=== PATIENT | male | born 1940 | race Caucasian/White ===

== ENCOUNTER 2017-04-21 19:44 | Emergency (ER) | payer MEDICARE, OTHER ==
[2017-04-21] MEDS ORDERED: Cephalexin CAP* 500 MG PO ONE (21:36)
[2017-04-21] MEDS ORDERED: Sulfamethox/Trimethoprim DS 800/160* TAB PO ONE (21:36)
[2017-04-21 22:55] VITALS: BP 138/64
--- NOTE | 2017-04-22 15:42 | ED ---
Cristóbal Garcia Auryana, scribed for Сергей Mooney MD on 04/21/17 at 2133 . Skin Complaint - HPI Summary HPI Summary: Patient is a 76-year-old male presenting to the ED with his and grandson with a CC of wounds. Patient reports that he hit his left causey onto a barbecue 1 week ago. Today, patient noticed drainage from the wound. Wound is painful to the touch, but is not painful at rest or with ambulation. Patient also reports healing wounds to the RLE and upper extremities - he states he easily develops wounds. Pt denies fever, chills, diaphoresis, nausea, and groin pain. Pt denies taking Abx or steroids. Hx DM. He states he has an appointment with PCP Dr. Spear on 04/23/2017. - History of Current Complaint Chief Complaint: EDExtremityLower Time Seen by Provider: 04/21/17 20:17 Stated Complaint: DIABETIC PROBLEM/INFECTION ON BOTH LEGS Hx Obtained From: Patient, Family/Human Resources Department Supervisor Onset/Duration: Started Weeks Ago - 1 week, Traumatic, Still Present Timing: Constant Onset Severity: Mild Current Severity: Moderate Pain Intensity: 0 Pain Scale Used: 0-10 Numeric Skin Location: Leg - LLE Aggravating Symptom(s): Touch Alleviating Symptom(s): Nothing Associated Signs & Symptoms: Drainage - Allergy/Home Medications Allergies/Adverse Reactions: Allergies Allergy/AdvReac Type Severity Reaction Status Date / Time No Known Allergies Allergy Verified 04/21/17 20:05 PMH/Surg Hx/FS Hx/Imm Hx Endocrine/Hematology History: Reports: Hx Diabetes Infectious Disease History: No Infectious Disease History: Denies: Traveled Outside the [place] in Last 30 Days - Family History Known Family History: Positive: Diabetes - Social History Alcohol Use: None Substance Use Type: Reports: None Hx Tobacco Use: No Smoking Status (MU): Unknown if Ever Smoked Review of Systems Negative: Fever, Chills Negative: Erythema Negative: Sore Throat Negative: Chest Pain Negative: Shortness Of Breath, Cough Negative: Abdominal Pain, Vomiting, Nausea Negative: dysuria, hematuria Negative: Myalgia, Edema Skin: Other - draining wound, multiple other scabbing wounds Negative: Rash Neurological: Other - Denies dizziness All Other Systems Reviewed And Are Negative: Yes Physical Exam - Summary Physical Exam Summary: Constitutional: Well-developed, Well-nourished, Alert. (-) Distressed Skin: Warm. Purulent material leaking from this puncture wound on left lower causey. No fluctuance or induration overlying. Scabbed-over skin trauma on extremities. HENT: Normocephalic; Atraumatic Eyes: Conjunctiva normal Neck: Musculoskeletal ROM normal neck. (-) JVD, (-) Stridor, (-) Tracheal deviation Cardio: Rhythm regular, rate normal, Heart sounds normal; Intact distal pulses; The pedal pulses are 2+ and symmetric. Radial pulses are 2+ and symmetric. (-) Murmur Pulmonary/Chest wall: Effort normal. (-) Respiratory distress, (-) Wheezes, (-) Rales Abd: Soft, (-) Tenderness, (-) Distension, (-) Guarding, (-) Rebound Musculoskeletal: (-) Edema Lymph: (-) Cervical adenopathy Neuro: Alert, Oriented x3 Psych: Mood and affect normal Triage Information Reviewed: Yes Vital Signs On Initial Exam: Initial Vitals Temp Pulse Resp BP Pulse Ox 97.9 F 68 16 116/57 100 04/21/17 20:00 04/21/17 20:00 04/21/17 20:00 04/21/17 20:00 04/21/17 20:00 Vital Signs Reviewed: Yes - Mary Coma Scale Coma Scale Total: 15 Diagnostics - Vital Signs Vital Signs Temp Pulse Resp BP Pulse Ox 04/21/17 20:39 98.2 F 64 18 127/56 99 04/21/17 20:00 97.9 F 68 16 116/57 100 - Laboratory Lab Statement: Any lab studies that have been ordered have been reviewed, and results considered in the medical decision making process. Course/Dx - Course Assessment/Plan: A 76 y/o M presents to the ED with a draining wound. Hx DM. Pt given Keflex and Bactrim in the ED, and is given a Rx for the same. Wound culture obtained. Patient is recommended to follow up with his PCP on Sunday, and is discharged home with a diagnosis of puncture wound and infected diabetic ulcer. - Diagnoses Provider Diagnoses: Puncture wound, INFECTED DIABETIC ULCER Discharge - Discharge Plan Condition: Stable Disposition: HOME Prescriptions: Cephalexin CAP* [Keflex CAP*] 500 mg PO QID #40 cap Sulfamethox/Trimethoprim DS* [Bactrim DS 800/160 TAB*] 1 tab PO BID #20 tab Patient Education Materials: Puncture Wound (ED), Wound Infection (ED) Referrals: Paulino Spear MD [Primary Care Provider] - 2 Days (Please keep your follow up appointment with Dr. Spear.) Additional Instructions: RETURN TO THE EMERGENCY DEPARTMENT FOR CHANGING OR WORSENING SYMPTOMS The documentation as recorded by the Cristóbal crisostomo Auryana accurately reflects the service I personally performed and the decisions made by me, Сергей Mooney MD.
--- NOTE | 2017-04-24 11:15 | PN ---
Progress Note - Progress Note Note: diagnosed with cellulitis. treated at discharge with keflex and bcatrim. culture results were MRSA negative however staph aureus positive. No further action needed at this time.
== END 2017-04-21 22:53 | disposition home or self-care (01) ==
LOC: ED 19:44
DX: S81.832A Puncture wound without foreign body, left lower leg, initial encounter (principal); E11.622 Type 2 diabetes mellitus with other skin ulcer; W22.8XXA Striking against or struck by other objects, initial encounter; Y93.9 Activity, unspecified; Y92.9 Unspecified place or not applicable; Y99.9 Unspecified external cause status
CPT/HCPCS: 87070; 87077; 87186; 87205; 87640; 87641; 99282; A9270-GY

== ENCOUNTER 2017-04-25 11:29 | Emergency (ER) | payer MEDICARE, OTHER ==
[2017-04-25] MEDS ORDERED: NS 0.9% 1000 ML* 2,000 ML IV ONE (13:46)
[2017-04-25 14:49] LABS: Troponin I 0.01 ng/mL (<0.04)
[2017-04-25 14:51] LABS: B Type Natriuretic Peptide 241 pg/mL
[2017-04-25 14:55] LABS: Ammonia 30 mol/L (16-53)
[2017-04-25 14:57] LABS: ALT 18 U/L (7-52); AST 43 U/L (13-39); Albumin 2.3 g/dL (3.2-5.2); Alkaline Phosphatase 101 U/L (34-104); Anion Gap 8 mmol/L (2-11); BUN/Creatinine Ratio 9.5 (8-20); Blood Urea Nitrogen 6 mg/dL (6-24); C Reactive Protein 15.62 mg/L (< 5.00); CO2 Carbon Dioxide 26 mmol/L (22-32); Chloride 100 mmol/L (101-111); Creatine Kinase 18 U/L (10-223); EGFR African American 158.8 (>60); EGFR Non-African American 123.5 (>60); Globulin 2.6 g/dL (2-4); Glucose 139 mg/dL (70-100); Lipase < 10 U/L (11.0-82.0); Magnesium 1.7 mg/dL (1.9-2.7); Potassium 3.9 mmol/L (3.5-5.0); Sodium 134 mmol/L (133-145); Total Protein 4.9 g/dL (6.4-8.9)
[2017-04-25 15:04] LABS: Hematocrit 39 % (42-52); Mean Corpuscular HGB Conc 33 g/dl (31-36); Mean Corpuscular Hemoglobin 39 pg (27-31); Mean Platelet Volume 9 um3 (7.4-10.4); Red Blood Count 3.34 10^6/ul (4.0-5.4); Red Cell Distribution Width 13 % (10.5-15); White Blood Count 5.3 10^3/ul (3.5-10.8)
[2017-04-25 15:05] LABS: TSH (Thyroid Stimulating Horm) 3.38 mcIU/mL (0.34-5.60)
[2017-04-25 15:06] LABS: Add Diff/Slide Review? Slide Review Added; Mean Corpuscular Volume 117 fL (80-94)
[2017-04-25 15:11] LABS: Macrocytosis 2+
[2017-04-25] MEDS ORDERED: Iodixanol* (CONTRAST) 320 MG/ML 100 ML SDV IV ONE (15:17)
[2017-04-25] MEDS ORDERED: Magnesium Sulfate 2 GM IV* 2 GM/50 ML BAG IVPB ONE (15:33)
--- NOTE | 2017-04-25 16:02 | RAD ---
INDICATION: Difficulty swallowing and confusion. COMPARISON: Comparison is made with a prior CT of the brain from June 08, 2008. TECHNIQUE: Contiguous axial sections of the brain were obtained from the skull base to the vertex without contrast. FINDINGS: The ventricles, cisterns and sulci are enlarged consistent with diffuse atrophy. No significant focal abnormality or mass effect is seen. There is no evidence for hemorrhage. No significant focal osseous abnormality is seen. There is a nodular density in the inferior portion of the left maxillary sinus consistent with a mucous retention cyst or polyp. The visualized portion of the paranasal sinuses and mastoid air cells otherwise appear clear. IMPRESSION: 1. NO EVIDENCE FOR GROSS ACUTE INFARCT, MASS EFFECT OR HEMORRHAGE. 2. DIFFUSE ATROPHY.
--- NOTE | 2017-04-25 16:11 | RAD ---
Indication: Difficulty swallowing, positive d-dimer. Contrast:Administered 50.3 ml of VISIPAQUE 320 mg/ml CT of the neck was performed after IV contrast demonstration. The paranasal sinuses demonstrates mucous retention cyst in the left maxillary sinus. No prevertebral soft tissue swelling is noted. No prevertebral masses are noted. Submandibular gland is otherwise unremarkable. Airways are otherwise patent. There is calcification of the carotid bulb bilaterally. The lung apices are grossly unremarkable with small bilateral pleural effusions. Degenerative changes of the cervical spine was obtained. IMPRESSION: No prevertebral soft tissue masses or abscess collection is noted. Mucus retention cyst left maxillary sinus.
--- NOTE | 2017-04-25 16:24 | RAD ---
INDICATION: Difficulty swallowing. Shortness of breath. Positive d-dimer. Possible PE. Weight loss. COMPARISON: July 31, 2007 RIGHT upper quadrant ultrasound. TECHNIQUE: Multidetector CT images were obtained from the lung apices to the ischial tuberosities with 100 mL Visipaque 320 IV contrast. Oral contrast administered. CT pulmonary angiogram protocol. Multiplanar reformation including maximum intensity projection images of the thorax. CHEST REPORT: Small bilateral dependent pleural effusions with associated proportional dependent compressive atelectasis. No alveolar consolidation concerning for pneumonia or focal pulmonary lesion evident. Mild prominence of the lower lung zone interstitial markings with thickened peripheral interlobular septa. Negative for pneumothorax. No CT abnormality of the nondistended thoracic esophagus. Partially calcified mediastinal lymph nodes with dominant 1.0 cm top normal subcarinal lymph node. Subcentimeter short axis hilar lymph nodes. Negative for thoracic lymphadenopathy. Negative for cardiomegaly or pericardial effusion. Normal diameter thoracic aorta with mild atherosclerotic plaque. Negative for thoracic aorta dissection. No filling defects are identified from the main to the subsegmental pulmonary arteries to indicate presence of a pulmonary embolism. Multilevel thoracic degenerative spondylosis. Negative for suspicious thoracic osseous lesions. CHEST IMPRESSION: 1. No evidence for pulmonary embolism. 2. Small bilateral pleural effusions with proportional atelectasis likely secondary to cardiogenic interstitial pulmonary edema. ABDOMEN PELVIS REPORT: 15.9 cm cephalocaudal liver is decreased in density consistent with hepatosteatosis with subcapsular and gallbladder fossa sparing. No suspicious focal hepatic lesions. No CT abnormality of the gallbladder. Advanced pancreatic atrophy and calcification at the atrophic pancreatic head consistent with sequela of previous pancreatitis without suspicious acute finding of the pancreas. Negative for biliary dilatation. Unremarkable spleen. Negative for CT abnormality of the upper GI, small bowel, or appendix visualized anterior to the cecum and ascending colon. Severe colonic diverticulosis. At the level of the mid descending colon there is mild perienteric inflammatory change most consistent with acute diverticulitis. Trace perienteric free fluid. Negative for perienteric abscess. Negative for significant hernias. Normal adrenal glands. Unremarkable kidneys with symmetric nephrograms and pyelograms. Unremarkable ureters and distended urinary bladder. Coarse calcifications at the prostate. Negative for lymphadenopathy. Mild atherosclerotic plaque of normal diameter abdominal aorta and iliac arteries. Partial physiologic distention of the IVC. Polyarticular degenerative arthropathy. Negative for suspicious focal osseous lesions. ABDOMEN PELVIS IMPRESSION: 1. Hepatosteatosis. 2. At the level of the mid descending colon there is mild perienteric inflammatory change most consistent with acute diverticulitis. Trace perienteric free fluid. Negative for perienteric abscess. Follow-up after therapy warranted to assess for resolution and exclude an underlying colonic neoplasm.
--- NOTE | 2017-04-25 18:33 | ED ---
Aissatou Garcia Alfonso, scribed for Maurice Erwin MD on 04/25/17 at 1341 . Complex/Multi-Sys Presentation - HPI Summary HPI Summary: This patient is a 76 y.o. male presenting to [facility] c/o generalized weakness for the last few days. He states "not having any energy at all." He reports loss of appetite, not eating (yesterday and today), difficulty swallowing, gagging, and N/V/D. Symptoms aggravated by eating and alleviated by nothing. The patient also reports dizziness and confusion. He denies sore throat, melena, fever, and pain including chest, neck, and abdominal pain. He presented to the ED 4 days ago for a non-MRSA staff infection in his left leg, which has improved with abx. Report losing 40 lb over the last two years secondary to having his teeth removed. He is taking cholesterol medication and metformin. - History Of Current Complaint Chief Complaint: EDWeakness Time Seen by Provider: 04/25/17 13:25 Hx Obtained From: Patient Onset/Duration: Sudden Onset, Lasting Days - A few days, Still Present Timing: Constant Severity Currently: Moderate Severity Initially: Moderate Aggravating Factor(s): Eating Alleviating Factor(s): Nothing Associated Signs And Symptoms: Positive: Confusion, Dizziness, Weakness - Generalized weakness of the last few days, Nausea, Vomiting, Diarrhea, Decreased Oral Intake - Loss of appetite, and did not eat yesterday and today, Other - Positive difficulty sallowing, gagging; Negative neck pain, sore throat. Negative: Chest Pain, Abdominal Pain, Melena, Fever - Allergies/Home Medications Allergies/Adverse Reactions: Allergies Allergy/AdvReac Type Severity Reaction Status Date / Time No Known Allergies Allergy Verified 04/21/17 20:05 Home Medications: Home Medications Gemfibrozil TAB* [Lopid TAB*] 600 mg PO DAILY 04/25/17 [History Confirmed 04/25] Sertraline* [Zoloft*] 25 mg PO DAILY 04/25/17 [History Confirmed 04/25/17] PMH/Surg Hx/FS Hx/Imm Hx Endocrine/Hematology History: Reports: Hx Diabetes Infectious Disease History: Denies: Traveled Outside the [place] in Last 30 Days - Family History Known Family History: Positive: Diabetes - Social History Alcohol Use: None Substance Use Type: Reports: None Hx Tobacco Use: No Smoking Status (MU): Unknown if Ever Smoked Review of Systems Negative: Fever Positive: Other - Positive difficulty swallowing, gagging. Negative: Sore Throat Negative: Chest Pain Positive: Vomiting, Diarrhea, Nausea, Other - negative melena. Negative: Abdominal Pain Positive: Arthralgia - Negative neck pain Neurological: Other - Positive loss of appetite, dizziness, and confusion Positive: Weakness - generalized weakness for the last few days Psychological: Normal All Other Systems Reviewed And Are Negative: Yes Physical Exam - Summary Physical Exam Summary: Gen: well-appearing, no pain distress, NAD. Skin: warm, color, dry, no edema. Head: normal Eyes: EOMI, STEFANO ENT: normal Neck: supple, nontender Resp: CTA, breath sounds present, lungs clear Cardio: RRR, no tachycardia Abd: soft, nontender Bowel: present Musc: normal, strength/ROM intact Neuro: normal, sensory/motor intact, A&O x3 Psych: affect/mood appropriate Triage Information Reviewed: Yes Vital Signs On Initial Exam: Initial Vitals Temp Pulse Resp BP Pulse Ox 98 F 88 17 109/68 96 04/25/17 11:32 04/25/17 11:32 04/25/17 11:32 04/25/17 11:32 04/25/17 11:32 Vital Signs Reviewed: Yes Diagnostics - Vital Signs Vital Signs Temp Pulse Resp BP Pulse Ox 04/25/17 11:32 98 F 88 17 109/68 96 - Laboratory Lab Results: Lab Results 04/25/17 04/25/17 04/25/17 Range/Units 14:10 14:10 14:10 WBC 5.3 (3.5-10.8) 10^3/ul RBC 3.34 L (4.0-5.4) 10^6/ul Hgb 13.0 L (14.0-18.0) g/dl Hct 39 L (42-52) % MCV 117 H (80-94) fL MCH 39 H (27-31) pg MCHC 33 (31-36) g/dl RDW 13 (10.5-15) % Plt Count 114 L (150-450) 10^3/ul MPV 9 (7.4-10.4) um3 Neut % (Auto) 71.9 (38-83) % Lymph % (Auto) 12.0 L (25-47) % Anderson % (Auto) 12.4 H (1-9) % Eos % (Auto) 3.2 (0-6) % Baso % (Auto) 0.5 (0-2) % Absolute Neuts (auto) 3.8 (1.5-7.7) 10^3/ul Absolute Lymphs (auto) 0.6 L (1.0-4.8) 10^3/ul Absolute Monos (auto) 0.7 (0-0.8) 10^3/ul Absolute Eos (auto) 0.2 (0-0.6) 10^3/ul Absolute Basos (auto) 0 (0-0.2) 10^3/ul Absolute Nucleated RBC 0.01 10^3/ul Nucleated RBC % 0.1 Normal RBC Morphology Not Reportable Macrocytosis 2+ INR (Anticoag Therapy) 1.15 H (0.89-1.11) APTT 32.2 (26.0-36.3) seconds D-Dimer, Quantitative 320 H (Less Than 230) ng/mL Sodium 134 (133-145) mmol/L Potassium 3.9 (3.5-5.0) mmol/L Chloride 100 L (101-111) mmol/L Carbon Dioxide 26 (22-32) mmol/L Anion Gap 8 (2-11) mmol/L BUN 6 (6-24) mg/dL Creatinine 0.63 L (0.67-1.17) mg/dL Est GFR ( Amer) 158.8 (>60) Est GFR (Non-Af Amer) 123.5 (>60) BUN/Creatinine Ratio 9.5 (8-20) Glucose 139 H (70-100) mg/dL Lactic Acid (0.5-2.0) mmol/L Calcium 8.0 L (8.6-10.3) mg/dL Magnesium 1.7 L (1.9-2.7) mg/dL Total Bilirubin 1.10 H (0.2-1.0) mg/dL AST 43 H (13-39) U/L ALT 18 (7-52) U/L Alkaline Phosphatase 101 (34-104) U/L Ammonia (16-53) mol/L Total Creatine Kinase 18 (10-223) U/L CK-MB (CK-2) 1.3 (0.6-6.3) ng/mL Troponin I 0.01 (<0.04) ng/mL C-Reactive Protein 15.62 H (< 5.00) mg/L B-Natriuretic Peptide ( - 100) pg/mL Total Protein 4.9 L (6.4-8.9) g/dL Albumin 2.3 L (3.2-5.2) g/dL Globulin 2.6 (2-4) g/dL Albumin/Globulin Ratio 0.9 L (1-3) Lipase < 10 L (11.0-82.0) U/L TSH 3.38 (0.34-5.60) mcIU/mL 04/25/17 04/25/17 Range/Units 14:10 14:10 WBC (3.5-10.8) 10^3/ul RBC (4.0-5.4) 10^6/ul Hgb (14.0-18.0) g/dl Hct (42-52) % MCV (80-94) fL MCH (27-31) pg MCHC (31-36) g/dl RDW (10.5-15) % Plt Count (150-450) 10^3/ul MPV (7.4-10.4) um3 Neut % (Auto) (38-83) % Lymph % (Auto) (25-47) % Anderson % (Auto) (1-9) % Eos % (Auto) (0-6) % Baso % (Auto) (0-2) % Absolute Neuts (auto) (1.5-7.7) 10^3/ul Absolute Lymphs (auto) (1.0-4.8) 10^3/ul Absolute Monos (auto) (0-0.8) 10^3/ul Absolute Eos (auto) (0-0.6) 10^3/ul Absolute Basos (auto) (0-0.2) 10^3/ul Absolute Nucleated RBC 10^3/ul Nucleated RBC % Normal RBC Morphology Macrocytosis INR (Anticoag Therapy) (0.89-1.11) APTT (26.0-36.3) seconds D-Dimer, Quantitative (Less Than 230) ng/mL Sodium (133-145) mmol/L Potassium (3.5-5.0) mmol/L Chloride (101-111) mmol/L Carbon Dioxide (22-32) mmol/L Anion Gap (2-11) mmol/L BUN (6-24) mg/dL Creatinine (0.67-1.17) mg/dL Est GFR ( Amer) (>60) Est GFR (Non-Af Amer) (>60) BUN/Creatinine Ratio (8-20) Glucose (70-100) mg/dL Lactic Acid 1.5 (0.5-2.0) mmol/L Calcium (8.6-10.3) mg/dL Magnesium (1.9-2.7) mg/dL Total Bilirubin (0.2-1.0) mg/dL AST (13-39) U/L ALT (7-52) U/L Alkaline Phosphatase (34-104) U/L Ammonia 30 (16-53) mol/L Total Creatine Kinase (10-223) U/L CK-MB (CK-2) (0.6-6.3) ng/mL Troponin I (<0.04) ng/mL C-Reactive Protein (< 5.00) mg/L B-Natriuretic Peptide 241 H ( - 100) pg/mL Total Protein (6.4-8.9) g/dL Albumin (3.2-5.2) g/dL Globulin (2-4) g/dL Albumin/Globulin Ratio (1-3) Lipase (11.0-82.0) U/L TSH (0.34-5.60) mcIU/mL Result Diagrams: 04/25/17 14:10 04/25/17 14:10 Lab Statement: Any lab studies that have been ordered have been reviewed, and results considered in the medical decision making process. - CT CTA Chest/Abd/Pelvis CT Interpretation: Positive (See Comments) - 1. No evidence for pulmonary embolism. 2. Small bilateral pleural effusions with proportional atelectasis likely secondary to cardiogenic interstitial pulmonary edema. CT Interpretation Completed By: Radiologist Neck CT CT Interpretation: Positive (See Comments) - No prevertebral soft tissue masses or abscess collection is noted. Mucus retention cyst left maxillary sinus. CT Interpretation Completed By: Radiologist Brain CT CT Interpretation: Positive (See Comments) - 1. NO EVIDENCE FOR GROSS ACUTE INFARCT, MASS EFFECT OR HEMORRHAGE. 2. DIFFUSE ATROPHY. CT Interpretation Completed By: Radiologist - EKG 1136 EKG Rhythm: Sinus Rhythm - NSR 73 BPM EKG Interpretation: PVC and low voltages in the extremity leads Re-Evaluation - Re-Evaluation Second Eval Re-Evaluation Time: 13:56 Comment: Discussed plan with patient and daughter. Complex Multi-Symp Course/Dx Course Of Treatment: NO CRITICAL CARE TIME. DISCUSSED RESULTS WITH PATIENT/ DAUGHTER. PATIENT TOLERATED PO CONTRAST IN ED. RX FLAGYL FOR DIVERTICULITIS. NO DIURETICS AT THIS TIME FOR THE PULMONARY EDEMA; PATIENT WILL F/U WITH PMD TO DETERMINE NEED FOR DIURETICS. DICUSSED NEED FOR GI F/U FOR PROBABLE EGD AND COLONOSCOPY. DISCHARGE HOME STABLE. - Diagnoses Provider Diagnoses: Weakness, Diverticulitis, Pulmonary edema - Physician Notifications Discussed Care Of Patient With: Ha Hicks Time Discussed With Above Provider: 13:41 Instructed by Provider To: Other - Discussed the patient and which imaging would be appropriate with Dr. Hicks (Hospitalist). Discharge - Discharge Plan Condition: Stable Disposition: HOME Prescriptions: Metronidazole [Flagyl 500 MG TAB] 500 mg PO TID #21 tab Patient Education Materials: Weakness (ED), Diverticulitis (ED), Pulmonary Edema (ED) Referrals: Paulino Spear MD [Primary Care Provider] - [facility] [Provider Group] Additional Instructions: FOLLOW UP WITH YOUR DOCTOR. CALL TOMORROW FOR FOLLOW UP. YOU ALSO NEED FOLLOW UP WITH GASTROENTEROLOGY FOR THE DIFFICULTY SWALLOWING AND COLON INFLAMMATION. RETURN TO THE EMERGENCY DEPARTMENT FOR ANY WORSENING OF YOUR CONDITION; PAIN, SHORTNESS OF BREATH, YOU FEEL ILL OR QUESTIONS OR CONCERNS. The documentation as recorded by the Aissatou crisostomo Alfonso accurately reflects the service I personally performed and the decisions made by me, Maurice Erwin MD.
[2017-04-25 18:54] VITALS: BP 142/53
== END 2017-04-25 18:54 | disposition home or self-care (01) ==
LOC: ED 11:29
DX: R53.1 Weakness (principal); J81.1 Chronic pulmonary edema; K57.92 Diverticulitis of intestine, part unspecified, without perforation or abscess without bleeding; R41.0 Disorientation, unspecified; R11.2 Nausea with vomiting, unspecified; R19.7 Diarrhea, unspecified
CPT/HCPCS: 36415; 70450; 70491; 71275; 74177; 80053; 82140; 82550; 82553; 83605; 83690; 83735; 83880; 84443; 84484; 85025; 85379; 85610; 85730; 86140; 93005; 99283; Q9967

== ENCOUNTER 2017-07-12 09:18 | Inpatient (IN) | payer MEDICARE, OTHER ==
[2017-07-12] MEDS ORDERED: Aspirin Low Dose CHEW TAB* 81 MG PO ONE (09:40)
[2017-07-12 10:00] LABS: Hematocrit 33 % (42-52); Hemoglobin 11.1 g/dl (14.0-18.0); Mean Corpuscular HGB Conc 34 g/dl (31-36); Mean Corpuscular Hemoglobin 37 pg (27-31); Mean Platelet Volume 7 um3 (7.4-10.4); Red Blood Count 2.99 10^6/ul (4.0-5.4); Red Cell Distribution Width 14 % (10.5-15); White Blood Count 6.3 10^3/ul (3.5-10.8)
[2017-07-12 10:04] LABS: Comments Flag Yes; Mean Corpuscular Volume 109 fL (80-94)
[2017-07-12 10:14] LABS: ALT 26 U/L (7-52); AST 58 U/L (13-39); Albumin 1.7 g/dL (3.2-5.2); Alkaline Phosphatase 159 U/L (34-104); Anion Gap 4 mmol/L (2-11); BUN/Creatinine Ratio 17.3 (8-20); Blood Urea Nitrogen 9 mg/dL (6-24); CO2 Carbon Dioxide 27 mmol/L (22-32); Calcium 8.2 mg/dL (8.6-10.3); Chloride 105 mmol/L (101-111); EGFR African American 197.7 (>60); EGFR Non-African American 153.7 (>60); Globulin 3.3 g/dL (2-4); Glucose 141 mg/dL (70-100); Potassium 3.4 mmol/L (3.5-5.0); Sodium 136 mmol/L (133-145)
[2017-07-12 10:15] LABS: Troponin I 0.01 ng/mL (<0.04)
--- NOTE | 2017-07-12 10:17 | RAD ---
HISTORY: Shortness of breath COMPARISONS: June 28, 2015 VIEWS:1: Single frontal portable view of the chest at 10:05 AM FINDINGS: LINES AND TUBES: None. CARDIOMEDIASTINAL SILHOUETTE: The cardiomediastinal silhouette is normal for portable technique. PLEURA: There is a moderate right pleural effusion. LUNG PARENCHYMA: There is patchy alveolar opacification of the right lung base ABDOMEN: The upper abdomen is clear. There is no subphrenic gas. BONES AND SOFT TISSUES: No bone or soft tissue abnormalities are noted. IMPRESSION: MODERATE RIGHT PLEURAL EFFUSION WITH RIGHT BASILAR ATELECTASIS VERSUS CONSOLIDATION
[2017-07-12] MEDS ORDERED: Furosemide IV* 10 MG/ML 10 ML VIAL (100 MG) IV ONE (10:58)
[2017-07-12] MEDS ORDERED: Potassium Chlor TAB* 20 MEQ TAB.ER PO ONE (12:27)
[2017-07-12 12:46] LABS: Prealbumin < 3 mg/dL (18-38)
[2017-07-12 12:48] LABS: Magnesium 1.6 mg/dL (1.9-2.7)
[2017-07-12] MEDS ORDERED: Magnesium Sulf 4 GM/100 ML IV* 4,000 MG/100 ML BAG IVPB ONE (13:05)
[2017-07-12 13:15] LABS: Troponin I 0.01 ng/mL (<0.04)
[2017-07-12 13:35] LABS: TSH (Thyroid Stimulating Horm) 6.75 mcIU/mL (0.34-5.60)
[2017-07-12 14:00] LABS: C Reactive Protein 22.33 mg/L (< 5.00)
[2017-07-12 14:23] LABS: Free T4 1.44 ng/dL (0.61-1.12)
[2017-07-12] MEDS: Enoxaparin(*) 40 MG/0.4 ML SYR SUBCUT SCH (15:11)
[2017-07-12] MEDS: Spironolactone TAB* 25 MG PO SCH (15:12)
[2017-07-12] MEDS: PANCRELIPASE 3000 UNIT PO SCH ×2 (15:13→18:00)
--- NOTE | 2017-07-12 15:22 | RAD ---
HISTORY: Ascites, evaluate liver COMPARISONS: April 25, 2017 TECHNIQUE: Multiple transverse and longitudinal ultrasound images were obtained of the right upper quadrant of the abdomen using grayscale, color Doppler, and spectral Doppler imaging. FINDINGS: LIVER: The liver is diffusely echogenic with a micronodular contour. There are no focal hepatic parenchymal masses. There is normal monophasic hepatopedal flow of the portal vein on Doppler imaging. BILIARY TREE: There is no intrahepatic or extrahepatic biliary dilatation. The common duct measures 0.3 cm. GALLBLADDER: There is mild bilateral thickening. There is no sonographic Yoo sign. PANCREAS: The pancreas is obscured by overlying bowel gas. RIGHT KIDNEY: The right kidney is normal in shape, size, contour, and echogenicity. There is no hydronephrosis or nephrolithiasis. The right kidney measures 10.2 x 4.6 x 5.7 cm. AORTA AND IVC: The aorta and IVC are unremarkable. FLUID: There is a moderate to large amount ascites. There is a right pleural effusion. OTHER FINDINGS: None. IMPRESSION: 1. ASCITES. 2. RIGHT PLEURAL EFFUSION. 3. CIRRHOTIC LIVER. 4. MILD GALLBLADDER WALL THICKENING
[2017-07-12 15:31] LABS: Total T3 0.58 ng/mL (0.87-1.78)
[2017-07-12 16:11] LABS: Urine Bilirubin Negative (Negative); Urine Glucose Negative (Negative); Urine Nitrite Negative (Negative)
--- NOTE | 2017-07-12 17:16 | HP ---
CC: Dr. Paulino Spear, primary care provider * MEDICINE HISTORY AND PHYSICAL: DATE OF ADMISSION: 07/12/17. PROVIDER: Jyotsna Abdi NP ATTENDING PHYSICIAN: Dr. Mookie Magdaleno * (as dictated by Jyotsna Abdi NP) PRIMARY CARE PROVIDER: Dr. Paulino Spear MD CHIEF COMPLAINT: Referred by PCP for further evaluation of ascites and worsening edema. HISTORY OF PRESENT ILLNESS: Mr. Ledbetter is a 77-year-old gentleman who presents to the ER today with concern for increased dyspnea and generalized edema that has been ongoing for several weeks now. Mr. Ledbetter has a history that is significant for alcohol abuse, which includes a many year history of drinking a 6-pack of beer daily. His last drink was at the end of March. He has been followed by his PCP, Cardiology, and Gastroenterology as an outpatient. Per the patient's , Sanjeev, who helped to provide most of the history, the patient started having more significant swelling approximately 3 weeks ago. She does endorse an approximate 40 pound weight loss over the past 2 years. Prior to the increase in swelling, she thinks his dry weight was about 130 pounds following his weight loss. This was approximately 3 to 4 weeks ago. Since then, he has gained approximately 30 pounds. She notes in the last week, he was 153 pounds and today he is 160 pounds. She reports decreased p.o. intake. She does provide the patient with 3 to 4 protein drinks a day, in which she uses a protein powder with 27 g of protein that she mixes into a shake for the patient. She states that he eats very poorly, so she relies mostly on these shakes and then on whatever other food that he can get in by mouth. Patient reports that he has difficulty managing food, but this is secondary to dentures that he has had difficulty getting used to. When he is not utilizing the dentures, he is able to swallow without difficulty. He denies any recent fevers, cold or flu type symptoms or concern for acute illness. He does endorse loss of appetite and generalized weakness. His family does state that he sleeps a lot more. However, the family does not endorse any confusion or impulsive behaviors. Patient states that he is "just tired all the time" and that he has no strength. He does sleep propped up on pillows in his bed, or he sleeps in a recliner. He does endorse leg and abdominal discomfort, which is secondary to the swelling. Prior to the swelling, he did not notice this pain. He reports nausea but no vomiting or diarrhea. Patient does state he has history of pancreatic insufficiency but that his stools have improved to the point now that they are no longer floating and greasy, but they do sink. However, it does still look abnormal to them. Again, in regards to the patient' s ambulation, he does need more assistance with moving. He does have a walker, but now he requires maximum assistance when out of bed and is very weak. Other symptoms include an occasional cough, more so with exertion and dyspnea with exertion. Patient does endorse dark tea colored urine, which has been ongoing for a few weeks now. The patient was seen in consultation for a new heart murmur by Dr. Julien earlier this month. Per the family, they were told that the steam tender did not feel that his symptoms were primarily to a heart condition but rather mostly related to perhaps the liver. They stated that there were no significant valvular abnormalities seen in the echocardiogram. They saw Dr. Solitario sometime in May and stated that he agreed with continuing the patient' s Creon, but there were no other recommendations made at that time. Patient also around that time had a CT of the abdomen, which did show atrophic pancreas. Here in the ER, the patient has received aspirin and approximately 60 mg of IV Lasix. He has started to have some output. His labs are significant for macrocytic anemia, which appears to be consistent with previous labs. His H and H was mildly decreased from previous. He does have some hypokalemia as well as a mildly elevated total bilirubin of 1.5, AST of 58, and alk phos of 159. His BNP is 102, his albumin is 1.7. Patient's chest x-ray is notable for moderate right pleural effusion with right basilar atelectasis versus consolidation. PAST MEDICAL HISTORY: 1. Pancreatic insufficiency. 2. Ascites and anasarca. 3. History of alcohol abuse. 4. Depression. 5. History of hypertension, no longer on any medications. 6. GERD with history of severe hepatitis. 7. Hyperlipidemia, not on statin therapy. 8. Actinic keratosis. 9. History of basal cell skin cancer. 10. Diabetes mellitus, type 2. Patient is not on any chronic medications. 11. Osteoarthritis. 12. Gout. 13. Heart murmur. 14. BPH. 15. Mildly hard of hearing. HOME MEDICATIONS: 1. Sertraline 50 mg daily. 2. Furosemide 20 mg daily. 3. Creon 1 to 2 tabs t.i.d. with meals. 4. Ranitidine 150 mg b.i.d. 5. Protein drinks 3 to 4 per day. 6. Allopurinol p.r.n. ALLERGIES: Include CLAM. FAMILY HISTORY: Patient reports a father with history of heart disease who is now and mother who of thoracic aneurysm. SOCIAL HISTORY: Patient is a former cigar smoker, he quit approximately 25 years ago. He has a longstanding history of drinking approximately 6 pack of beer daily and occasional hard liquor. His last drink was at the end of March 2017. He does not have any history of illicit drug use. 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 He is . His Sanjeev is his surrogate decision maker. REVIEW OF SYSTEMS: As per above, all those not mentioned HPI are negative. PHYSICAL EXAMINATION GENERAL: Mr. Ledbetter is a 77-year-old male patient who appears older than stated age. He is very frail. VITAL SIGNS: Temperature 98.6, heart rate 72, respiratory rate 16, blood pressure 112/62, and O2 saturation is 98% on room air. HEENT: Head is atraumatic, normocephalic. Face is symmetrical. Pupils are equal, round, reactive to light and accommodation. Oral mucosa appears somewhat tachy and dry. There is no oropharyngeal exudate. NECK: Supple, no lymphadenopathy appreciated. No JVD noted. RESPIRATORY: Lungs are diminished, more so over the bases with some mild rales heard in the left and the right bases. CARDIAC: S1, S2 heart sounds. Regular rate and rhythm. Patient has a grade 2/ 6 systolic murmur, that is best heard at the apex. Patient has 2 to 3+ peripheral edema in the bilateral lower extremities as well as to the abdomen. ABDOMEN: Soft, nontender, but distended. I did not appreciate any hepato or splenomegaly. There is pitting edema in the lower aspect of the abdominal wall as well as in the sacral area. MUSCULOSKELETAL: There is no clubbing or cyanosis. The patient has full range of motion. SKIN: Limited assessment but appears grossly intact. Patient has some mild petechiae noted across his abdomen. NEURO: No focal deficits noted. Cranial nerves II through XII are grossly intact. Sensation is intact to light touch to the lower extremities. PSYCH: He is alert and oriented x3. Affect is appropriate. LABORATORY DATA AND DIAGNOSTIC STUDIES: CBC: WBC 6.3, hemoglobin 11.1, hematocrit 33, MCV 109, platelet count 208. CMP: Sodium 136, potassium 3.4, chloride 105, carbon dioxide 27, BUN 9, creatinine 0.52, glucose 141, lactic acid 1.8. Calcium 8.2. Total bilirubin 1.5, AST 58, ALT 26, alk phos 139. Troponin 0.01, BNP 102. Albumin is 1.7. Total protein 5.0. EKG shows ventricular bigeminy with low voltage, patient has a QTc of 508, this is similar in appearance to previous EKGs. Patient on previous EKGs also has low voltage noted with a prolonged QTc and with abnormal R-wave progression. No new T- wave or ST changes. Chest x-ray as per above. Patient has limited old records for review. ASSESSMENT AND PLAN: Mr. Ledbetter is a 77-year-old male patient who presents today with ascites and dyspnea as well as anasarca to the lower extremities with concern for [id number] protein calorie malnutrition. He will be admitted as an inpatient to the medicine floor. Plan is as follows: 1. Dyspnea. This is likely secondary to the patient's pleural effusions. I am requesting a copy of the echocardiogram as I cannot access it mobile and/or to see what the echocardiogram actually showed. As I am unable to access the records, I will obtain echocardiogram here in the hospital. Patient' s BNP is only [address] it appears that Dr. Julien felt that the patient's edema and symptoms is likely not primarily cardiac in origin. Patient has already received Lasix 60 mg IV here in the ER and has started to diurese. We will follow his I's and O's and blood pressures which are somewhat soft. I also started the patient on spironolactone as his dyspnea is likely secondary to chronic liver disease and subsequent ascites and hyperalbuminuria. 2. Ascites and generalized anasarca. Again this is likely secondary to chronic liver disease. I have ordered an ultrasound of the abdomen to specifically look at the liver as well as the extent of the ascites. Again, the patient has received IV furosemide, which we will continue in addition to spironolactone. I have discussed the case with Dr. Solitario who is not compressor station engineer, and will not be returning to the hospital until next week. He did agree with the current plan of care. Patient's total bilirubin is mildly elevated at 1.5, which is actually a little bit improved from previous labs drawn last week of 2.1. His AST is also mildly elevated. Again, improved slightly from previous. We will also check a prealbumin to evaluate for the extent of the patient's albumin deficiency and we will also add an INR to evaluate for coagulopathy. Given the patient's decondition natured, need to keep accurate I's and O's to monitor for the patient's ascites and renal function. Patient has been ordered a Herman catheter. 3. Protein-calorie malnutrition. I suspect that this is probably moderate to severe. Again, I will check a prealbumin and I have ordered a nutrition consult to evaluate the patient and suggest further recommendations. Dr. Spear's note indicated that TPN may be indicated for this patient, so I would appreciate nutrition's input in that respect. For now, we will continue with protein supplementation. 4. Macrocytic anemia. Again, this is not new. Patient has had evidence of this from previous labs and it looks like last week he recently had a B12 and folate which were both normal. This is likely secondary to patient's history of daily alcohol use. Continue to follow. Suspect the patient's mild hemoglobin drop may be secondary to his edema, but we will continue to follow these values. 5. Hypokalemia. We will replete this. It is likely secondary to diuresis. Continue to follow BMP. I will also check a mag and replete as needed. 6. History of type 2 diabetes. I will check a hemoglobin A1c. Patient is not managed on any medications at home. 7. Weakness and generalized malaise. Patient is ordered PT and OT, suspected for strong, physical deconditioning component. However, with the patient's chronic liver disease, I will also check an ammonia to ensure that that is not adding to the picture. He does appear to be alert and is appropriately responding. He is not on any chronic medications for his liver. We will also check a urine to rule out infection as well as CRP. 8. History of pancreatic insufficiency. Continue home Creon. 9. History of alcohol abuse. Patient has last used alcohol in March. Do not expect to see any withdrawal symptoms. 10. History of depression. Continue home Zoloft. 11. History of GERD with esophagitis. Continue home ranitidine with therapeutic substitute. 12. FEN. The patient is ordered a low sodium diet with soft textures as well as protein supplementation. 13. DVT prophylaxis. He is ordered subcu Lovenox. 14. Code status. The patient is a full code. He does not have any MOLST or advanced directive forms that has been completed. 15. Disposition. Admit to Medicine. Condition is somewhat guarded. Anticipate the patient may have rehab needs. TIME SPENT: Time spent on this admission was approximately 65 minutes, more than half that time was spent [id number] with the patient and family obtaining history and physical, performing physical examination and reviewing plan of care. Plan of care was also reviewed with my attending, Dr. Magdaleno, who is in agreement. JYOTSNA ABDI, ALYSHA [id number]/CPS #: [id number] ANGELINA
[2017-07-12] MEDS: Potassium Chlor TAB* 20 MEQ TAB.ER PO SCH (21:37)
[2017-07-12] MEDS: Famotidine TAB* 20 MG PO SCH (21:37)
[2017-07-13 06:26] LABS: Hematocrit 32 % (42-52); Mean Corpuscular HGB Conc 35 g/dl (31-36); Mean Corpuscular Hemoglobin 38 pg (27-31); Mean Platelet Volume 7 um3 (7.4-10.4); Red Blood Count 2.91 10^6/ul (4.0-5.4); Red Cell Distribution Width 14 % (10.5-15); White Blood Count 5.9 10^3/ul (3.5-10.8)
[2017-07-13 06:31] LABS: Comments Flag Yes; Mean Corpuscular Volume 108 fL (80-94)
[2017-07-13 06:42] LABS: BUN/Creatinine Ratio 16.1 (8-20); EGFR African American 181.5 (>60); EGFR Non-African American 141.1 (>60); Potassium 3.6 mmol/L (3.5-5.0)
[2017-07-13] MEDS: PANCRELIPASE 3000 UNIT PO SCH ×3 (08:03→17:06)
[2017-07-13] MEDS ORDERED: Furosemide IV* 10 MG/ML VIAL (40 MG) IV SLOW PU SCH (09:00)
[2017-07-13] MEDS: Potassium Chlor TAB* 20 MEQ TAB.ER PO SCH ×2 (09:24→19:24)
[2017-07-13] MEDS: Sertraline* 50 MG TAB PO SCH (09:24)
[2017-07-13] MEDS: Spironolactone TAB* 25 MG PO SCH (09:25)
[2017-07-13] MEDS: Famotidine TAB* 20 MG PO SCH ×2 (09:25→19:24)
[2017-07-13 12:18] LABS: Magnesium 1.9 mg/dL (1.9-2.7)
[2017-07-13] MEDS: Enoxaparin(*) 40 MG/0.4 ML SYR SUBCUT SCH (12:57)
--- NOTE | 2017-07-13 17:11 | PN ---
Subjective Date of Service: 07/13/17 Interval History: Mr. Ledbetter feels a little better today. He reports that his breathing is improving. No bleeding, no abdominal pain. Still very weak and poor appetite. His and mother in law are at bedside. Earlier this morning, he was having trouble urinating, but since then has been able to urinate without difficulty. He denies any history of bph. No diarrhea or constipation. Family History: Unchanged from Admission Social History: Unchanged from Admission Past Medical History: Unchanged from Admission Objective Active Medications: Enoxaparin Sodium (Lovenox(*)) 40 mg SUBCUT Q24H [facility] Last Admin: 07/13/17 12:57 Dose: 40 mg Famotidine (Pepcid Tab*) 20 mg PO BID [facility] PRN Reason: Protocol Last Admin: 07/13/17 09:25 Dose: 20 mg Furosemide (Lasix Iv*) 40 mg IV SLOW PU DAILY [facility] Last Admin: 07/13/17 09:23 Dose: 40 mg Pancrelipase (Creon (Nf)) 6,000 units PO TID WITH MEALS [facility] Last Admin: 07/13/17 12:56 Dose: 3,000 units Potassium Chloride (Klor Con Er Tab*) 20 meq PO BID [facility] Last Admin: 07/13/17 09:24 Dose: 20 meq Sertraline HCl (Zoloft*) 50 mg PO DAILY [facility] Last Admin: 07/13/17 09:24 Dose: 50 mg Spironolactone (Aldactone Tab*) 25 mg PO DAILY [facility] Last Admin: 07/13/17 09:25 Dose: 25 mg Vital Signs 07/12/17 07/12/17 07/13/17 19:28 22:29 02:22 Temperature 97.6 F 97.5 F Pulse Rate 78 72 Respiratory 20 18 14 Rate Blood Pressure 133/64 123/55 (mmHg) O2 Sat by Pulse 95 96 Oximetry 07/13/17 07/13/17 07/13/17 07:57 08:00 15:57 Temperature 97.8 F Pulse Rate 82 72 Respiratory 21 16 18 Rate Blood Pressure 120/48 117/45 (mmHg) O2 Sat by Pulse 96 96 Oximetry Oxygen Devices in Use Now: None Appearance: thin, elderly man. temporal wasting. Eyes: No Scleral Icterus, PERRLA Ears/Nose/Mouth/Throat: NL Teeth, Lips, Gums, Clear Oropharnyx, Mucous Membranes Moist, - - dentures in place Neck: Trachea Midline, No Thyroid Enlargement, Masses Respiratory: Symmetrical Chest Expansion and Respiratory Effort, - - decreased breath sounds at the right base Cardiovascular: RRR, - - systolic murmur at the apex, PMI nondisplaced Abdominal: - - liver palpable 1cm below the costal margin; ascites with fluid wave Lymphatic: No Cervical Adenopathy Extremities: - - pitting edema to the thighs, R=L Skin: No Rash or Ulcers, - - scattered echymoses Neurological: Alert and Oriented x 3, NL Muscle Strength and Tone, - - no asterixis Nutrition: Taking PO's Result Diagrams: 07/13/17 06:16 07/13/17 06:16 Additional Lab and Data: Lab Results 07/12/17 07/12/17 07/12/17 Range/Units 09:50 09:50 09:50 WBC 6.3 (3.5-10.8) 10^3/ul RBC 2.99 L (4.0-5.4) 10^6/ul Hgb 11.1 L (14.0-18.0) g/dl Hct 33 L (42-52) % MCV 109 H (80-94) fL MCH 37 H (27-31) pg MCHC 34 (31-36) g/dl RDW 14 (10.5-15) % Plt Count 208 (150-450) 10^3/ul MPV 7 L (7.4-10.4) um3 Neut % (Auto) 66.0 (38-83) % Lymph % (Auto) 17.4 L (25-47) % [place] % (Auto) 13.2 H (1-9) % Eos % (Auto) 3.2 (0-6) % Baso % (Auto) 0.2 (0-2) % Absolute Neuts (auto) 4.1 (1.5-7.7) 10^3/ul Absolute Lymphs (auto) 1.1 (1.0-4.8) 10^3/ul Absolute Monos (auto) 0.8 (0-0.8) 10^3/ul Absolute Eos (auto) 0.2 (0-0.6) 10^3/ul Absolute Basos (auto) 0 (0-0.2) 10^3/ul Absolute Nucleated RBC 0.01 10^3/ul Nucleated RBC % 0.1 Sodium 136 (133-145) mmol/L Potassium 3.4 L (3.5-5.0) mmol/L Chloride 105 (101-111) mmol/L Carbon Dioxide 27 (22-32) mmol/L Anion Gap 4 (2-11) mmol/L BUN 9 (6-24) mg/dL Creatinine 0.52 L (0.67-1.17) mg/dL Est GFR ( Amer) 197.7 (>60) Est GFR (Non-Af Amer) 153.7 (>60) BUN/Creatinine Ratio 17.3 (8-20) Glucose 141 H (70-100) mg/dL Lactic Acid (0.5-2.0) mmol/L Calcium 8.2 L (8.6-10.3) mg/dL Total Bilirubin 1.50 H (0.2-1.0) mg/dL AST 58 H (13-39) U/L ALT 26 (7-52) U/L Alkaline Phosphatase 159 H (34-104) U/L Troponin I 0.01 (<0.04) ng/mL B-Natriuretic Peptide 102 H ( - 100) pg/mL Total Protein 5.0 L (6.4-8.9) g/dL Albumin 1.7 L (3.2-5.2) g/dL Globulin 3.3 (2-4) g/dL Albumin/Globulin Ratio 0.5 L (1-3) 07/12/17 Range/Units 09:50 WBC (3.5-10.8) 10^3/ul RBC (4.0-5.4) 10^6/ul Hgb (14.0-18.0) g/dl Hct (42-52) % MCV (80-94) fL MCH (27-31) pg MCHC (31-36) g/dl RDW (10.5-15) % Plt Count (150-450) 10^3/ul MPV (7.4-10.4) um3 Neut % (Auto) (38-83) % Lymph % (Auto) (25-47) % [place] % (Auto) (1-9) % Eos % (Auto) (0-6) % Baso % (Auto) (0-2) % Absolute Neuts (auto) (1.5-7.7) 10^3/ul Absolute Lymphs (auto) (1.0-4.8) 10^3/ul Absolute Monos (auto) (0-0.8) 10^3/ul Absolute Eos (auto) (0-0.6) 10^3/ul Absolute Basos (auto) (0-0.2) 10^3/ul Absolute Nucleated RBC 10^3/ul Nucleated RBC % Sodium (133-145) mmol/L Potassium (3.5-5.0) mmol/L Chloride (101-111) mmol/L Carbon Dioxide (22-32) mmol/L Anion Gap (2-11) mmol/L BUN (6-24) mg/dL Creatinine (0.67-1.17) mg/dL Est GFR ( Amer) (>60) Est GFR (Non-Af Amer) (>60) BUN/Creatinine Ratio (8-20) Glucose (70-100) mg/dL Lactic Acid 1.8 (0.5-2.0) mmol/L Calcium (8.6-10.3) mg/dL Total Bilirubin (0.2-1.0) mg/dL AST (13-39) U/L ALT (7-52) U/L Alkaline Phosphatase (34-104) U/L Troponin I (<0.04) ng/mL B-Natriuretic Peptide ( - 100) pg/mL Total Protein (6.4-8.9) g/dL Albumin (3.2-5.2) g/dL Globulin (2-4) g/dL Albumin/Globulin Ratio (1-3) Assess/Plan/Problems-Billing Assessment: 1. Decomensated Liver Failure. This is a new diagnosis for him and his family. I discussed the diagnosis of cirrhosis with them at length. He quit drinking this Spring because he was becoming so weak and deconditioned. Prior to that he drank about 6 drinks per day since he was in his teens. He has no history of IV drug abuse and no exposure to hepatitis that he knows of. No one in his family has history of liver disease. It appears that his decompensation is subacute and has been worsening over weeks to months. Will rule out infectious sources, though he does not appear to be infected. Check UA. Denies melena and hgb is stable, so I have a low suspicion for a GI bleed as the etiology of his decompensation. He has had no fevers, nor abdominal pain to suggest SBP. Will check hepatitis panel to rule out alternative etiologies. Given his age and lack of other stigmata, will not pursue work up of infiltrative etiologies. Will diurese with IV lasix and spironolactone for now. will also check TTE to rule out cardiac cirrhosis/ascites. He is not on any medications that are hepatotoxic. 2. Coagulopathy. Likely related to #1. No bleeding. No indication for ffp at this time. 3. Pleural Effusion most likely related to liver failure and hypoalbuminemia. Will attempt to diurese as above. 4. Severe protein malnourishment Again, likely related to liver failure. Appreciate nutrition input. 5. Deconditioning Appreciate PT input. I discussed the possibility of inpatient rehab with his family. 6. Disposition. I discussed the poor prognosis of liver failure with his family. He is not a transplant candidate.
[2017-07-13] MEDS: Furosemide IV* 10 MG/ML VIAL (40 MG) IV SLOW PU SCH (19:28)
[2017-07-14] MEDS: PANCRELIPASE 3000 UNIT PO SCH ×4 (09:52→18:23)
[2017-07-14] MEDS: Famotidine TAB* 20 MG PO SCH ×2 (09:54→21:31)
[2017-07-14] MEDS: Furosemide IV* 10 MG/ML VIAL (40 MG) IV SLOW PU SCH (09:54)
[2017-07-14] MEDS: Potassium Chlor TAB* 20 MEQ TAB.ER PO SCH ×2 (09:54→21:30)
[2017-07-14] MEDS: Sertraline* 50 MG TAB PO SCH (09:54)
[2017-07-14] MEDS: Spironolactone TAB* 25 MG PO SCH (09:54)
[2017-07-14 10:46] LABS: Hematocrit 34 % (42-52); Hemoglobin 11.8 g/dl (14.0-18.0); Mean Corpuscular HGB Conc 35 g/dl (31-36); Mean Corpuscular Hemoglobin 37 pg (27-31); Mean Platelet Volume 7 um3 (7.4-10.4); Red Blood Count 3.16 10^6/ul (4.0-5.4); Red Cell Distribution Width 15 % (10.5-15); White Blood Count 9.4 10^3/ul (3.5-10.8)
[2017-07-14 10:56] LABS: Comments Flag Yes; Mean Corpuscular Volume 108 fL (80-94)
[2017-07-14 11:12] LABS: BUN/Creatinine Ratio 11.6 (8-20); Calcium 8.4 mg/dL (8.6-10.3); EGFR African American 110.6 (>60); Globulin 3.5 g/dL (2-4); Total Bilirubin 2.2 mg/dL (0.2-1.0); Total Protein 5.5 g/dL (6.4-8.9)
[2017-07-14 11:29] LABS: Potassium 3.5 mmol/L (3.5-5.0)
--- NOTE | 2017-07-14 11:43 | RAD ---
INDICATION: Fever and effusion. COMPARISON: Comparison is made with a prior chest x-ray study from July 12, 2017. TECHNIQUE: AP and lateral views of the chest were obtained. FINDINGS: The heart is within normal limits in size. Mediastinal contours appear normal. There is a moderate size right pleural effusion and a small left pleural effusion. There are small bibasilar infiltrates. There is no significant change from the prior exam. IMPRESSION: MODERATE RIGHT AND SMALL LEFT PLEURAL EFFUSIONS, UNCHANGED. SMALL BIBASILAR INFILTRATES, UNCHANGED.
--- NOTE | 2017-07-14 12:15 | PN ---
Subjective Date of Service: 07/14/17 Interval History: Mr. Ledbetter did well overnight with no acute events. He was negative 760mL in the past 24 hours. However, this morning he spiked a fever to 101. He says he feels unwell this morning but has trouble localizing symptoms. He feels lethargic and nauseous, but has not vomited. His family agrees that he looks more weak this morning. No confusion, no diarrhea, no abdominal pain. He does not a slight productive cough, no shortness of breath or chest pain. Family History: Unchanged from Admission Social History: Unchanged from Admission Past Medical History: Unchanged from Admission Objective Active Medications: Enoxaparin Sodium (Lovenox(*)) 40 mg SUBCUT Q24H [facility] Last Admin: 07/13/17 12:57 Dose: 40 mg Famotidine (Pepcid Tab*) 20 mg PO BID [facility] PRN Reason: Protocol Last Admin: 07/14/17 09:54 Dose: 20 mg Albumin Human 100 ml/ IV (Solution) 100 mls @ 0 mls/hr IV Q6H [facility] PRN Reason: As Directed Stop: 07/15/17 06:01 Cefotaxime Sodium 2,000 mg/ (Sodium Chloride) 50 mls @ 100 mls/hr IVPB Q8H [facility] Pancrelipase (Creon (Nf)) 6,000 units PO TID WITH MEALS [facility] Last Admin: 07/14/17 10:19 Dose: Not Given Potassium Chloride (Klor Con Er Tab*) 20 meq PO BID [facility] Last Admin: 07/14/17 09:54 Dose: 20 meq Sertraline HCl (Zoloft*) 50 mg PO DAILY [facility] Last Admin: 07/14/17 09:54 Dose: 50 mg Spironolactone (Aldactone Tab*) 25 mg PO DAILY [facility] Last Admin: 07/14/17 09:54 Dose: 25 mg Vital Signs 07/13/17 07/13/17 07/13/17 15:57 19:42 20:14 Temperature 97.8 F 98.0 F Pulse Rate 72 74 Respiratory 18 14 16 Rate Blood Pressure 117/45 115/47 (mmHg) O2 Sat by Pulse 96 98 Oximetry 07/13/17 07/14/17 07/14/17 23:42 03:37 07:36 Temperature 98.3 F 98.1 F 98.1 F Pulse Rate 76 82 102 Respiratory 16 20 22 Rate Blood Pressure 112/45 110/58 125/48 (mmHg) O2 Sat by Pulse 96 93 95 Oximetry 07/14/17 08:00 Temperature Pulse Rate Respiratory 22 Rate Blood Pressure (mmHg) O2 Sat by Pulse Oximetry Oxygen Devices in Use Now: Nasal Cannula - 2L placed for 89% saturation on RA Appearance: very thin, tired appearing, temporal wasting Ears/Nose/Mouth/Throat: NL Teeth, Lips, Gums, Clear Oropharnyx, - - dry mucosa Neck: NL Appearance and Movements; NL JVP, Trachea Midline, No Thyroid Enlargement, Masses Respiratory: Symmetrical Chest Expansion and Respiratory Effort, Clear to Auscultation Cardiovascular: NL Sounds; No Murmurs; No JVD, - - pitting edema b/l legs, improved from yesterday Abdominal: - - distended, soft, nontender, liver palpable at costal margin, negative Yoo's sign Lymphatic: No Cervical Adenopathy Extremities: - - pitting edema to thighs improved Skin: No Rash or Ulcers Neurological: - - oriented x 3, sleepy, arouses to voice Result Diagrams: 07/14/17 10:37 07/14/17 10:38 Additional Lab and Data: Lab Results 07/12/17 07/12/17 07/12/17 Range/Units 09:50 09:50 09:50 WBC 6.3 (3.5-10.8) 10^3/ul RBC 2.99 L (4.0-5.4) 10^6/ul Hgb 11.1 L (14.0-18.0) g/dl Hct 33 L (42-52) % MCV 109 H (80-94) fL MCH 37 H (27-31) pg MCHC 34 (31-36) g/dl RDW 14 (10.5-15) % Plt Count 208 (150-450) 10^3/ul MPV 7 L (7.4-10.4) um3 Neut % (Auto) 66.0 (38-83) % Lymph % (Auto) 17.4 L (25-47) % Nelson % (Auto) 13.2 H (1-9) % Eos % (Auto) 3.2 (0-6) % Baso % (Auto) 0.2 (0-2) % Absolute Neuts (auto) 4.1 (1.5-7.7) 10^3/ul Absolute Lymphs (auto) 1.1 (1.0-4.8) 10^3/ul Absolute Monos (auto) 0.8 (0-0.8) 10^3/ul Absolute Eos (auto) 0.2 (0-0.6) 10^3/ul Absolute Basos (auto) 0 (0-0.2) 10^3/ul Absolute Nucleated RBC 0.01 10^3/ul Nucleated RBC % 0.1 Sodium 136 (133-145) mmol/L Potassium 3.4 L (3.5-5.0) mmol/L Chloride 105 (101-111) mmol/L Carbon Dioxide 27 (22-32) mmol/L Anion Gap 4 (2-11) mmol/L BUN 9 (6-24) mg/dL Creatinine 0.52 L (0.67-1.17) mg/dL Est GFR ( Amer) 197.7 (>60) Est GFR (Non-Af Amer) 153.7 (>60) BUN/Creatinine Ratio 17.3 (8-20) Glucose 141 H (70-100) mg/dL Lactic Acid (0.5-2.0) mmol/L Calcium 8.2 L (8.6-10.3) mg/dL Total Bilirubin 1.50 H (0.2-1.0) mg/dL AST 58 H (13-39) U/L ALT 26 (7-52) U/L Alkaline Phosphatase 159 H (34-104) U/L Troponin I 0.01 (<0.04) ng/mL B-Natriuretic Peptide 102 H ( - 100) pg/mL Total Protein 5.0 L (6.4-8.9) g/dL Albumin 1.7 L (3.2-5.2) g/dL Globulin 3.3 (2-4) g/dL Albumin/Globulin Ratio 0.5 L (1-3) 07/12/17 Range/Units 09:50 WBC (3.5-10.8) 10^3/ul RBC (4.0-5.4) 10^6/ul Hgb (14.0-18.0) g/dl Hct (42-52) % MCV (80-94) fL MCH (27-31) pg MCHC (31-36) g/dl RDW (10.5-15) % Plt Count (150-450) 10^3/ul MPV (7.4-10.4) um3 Neut % (Auto) (38-83) % Lymph % (Auto) (25-47) % Nelson % (Auto) (1-9) % Eos % (Auto) (0-6) % Baso % (Auto) (0-2) % Absolute Neuts (auto) (1.5-7.7) 10^3/ul Absolute Lymphs (auto) (1.0-4.8) 10^3/ul Absolute Monos (auto) (0-0.8) 10^3/ul Absolute Eos (auto) (0-0.6) 10^3/ul Absolute Basos (auto) (0-0.2) 10^3/ul Absolute Nucleated RBC 10^3/ul Nucleated RBC % Sodium (133-145) mmol/L Potassium (3.5-5.0) mmol/L Chloride (101-111) mmol/L Carbon Dioxide (22-32) mmol/L Anion Gap (2-11) mmol/L BUN (6-24) mg/dL Creatinine (0.67-1.17) mg/dL Est GFR ( Amer) (>60) Est GFR (Non-Af Amer) (>60) BUN/Creatinine Ratio (8-20) Glucose (70-100) mg/dL Lactic Acid 1.8 (0.5-2.0) mmol/L Calcium (8.6-10.3) mg/dL Total Bilirubin (0.2-1.0) mg/dL AST (13-39) U/L ALT (7-52) U/L Alkaline Phosphatase (34-104) U/L Troponin I (<0.04) ng/mL B-Natriuretic Peptide ( - 100) pg/mL Total Protein (6.4-8.9) g/dL Albumin (3.2-5.2) g/dL Globulin (2-4) g/dL Albumin/Globulin Ratio (1-3) Assess/Plan/Problems-Billing Assessment: 1. Sepsis Source is unclear at this time, but I am most suspicious of SBP. Will get a diagnostic paracentesis and start empiric cefotaxime until the cell count returns. Hold lasix, start albumin. Hemodynamically stable at this time. Stat blood cultures, lactate sent. Will also repeat CXR. 2. Decomensated Liver Failure. This is a new diagnosis for him and his family. I discussed the diagnosis of cirrhosis with them at length yesterday. He quit drinking this Spring because he was becoming so weak and deconditioned. Prior to that he drank about 6 drinks per day since he was in his teens. He has no history of IV drug abuse and no exposure to hepatitis that he knows of. No one in his family has history of liver disease. I am now concerned that an infectious source caused this decompensation--start empiric antibiotics as above. Denies melena and hgb is stable, so I have a low suspicion for a GI bleed as the etiology of his decompensation. Will check hepatitis panel to rule out alternative etiologies. Given his age and lack of other stigmata, will not pursue work up of infiltrative etiologies. Holding the IV lasix and spironolactone for now; diuresed well yesterday but will resuscitate him today given #1. will also check TTE to rule out cardiac cirrhosis/ascites. He is not on any medications that are hepatotoxic. 2. Coagulopathy. Likely related to #1. No bleeding. 3. Pleural Effusion most likely related to liver failure and hypoalbuminemia. Diuresed yesterday; repeat CXR today. 4. Severe protein malnourishment Again, likely related to liver failure. Appreciate nutrition input. Trial albumin today. 5. Deconditioning Appreciate PT input. I discussed the possibility of inpatient rehab with his family. 6. Disposition. I discussed the poor prognosis of liver failure with his family. He is not a transplant candidate. I discussed code status with Mr. Ledbetter and his today--they wish for him to be DNR/DNI. They are open to a hospice discussion, and we will pursue this once we manage the sepsis.
[2017-07-14] MEDS: Albumin Human 25%* 100 ML in PREMIX* 0 ML IV SCH ×2 (12:56→18:32)
[2017-07-14] MEDS ORDERED: cefTRIAXone VIAL(*) 1,000 MG in NS 0.9% 50 ML* 50 ML IVPB SCH (13:00)
[2017-07-14] MEDS ORDERED: cefoTAXime(*) 2,000 MG in NS 0.9% 50 ML* 50 ML IVPB SCH (13:00)
[2017-07-14] MEDS: Enoxaparin(*) 40 MG/0.4 ML SYR SUBCUT SCH (13:49)
[2017-07-14] MEDS ORDERED: Morphine INJ* 2 MG/ML 1 ML SYRINGE IV PRN (15:40)
[2017-07-14 15:43] LABS: Body Fluid Total Cells Counted 100
[2017-07-14 15:47] LABS: Body Fluid Appearance Clear; Body Fluid WBC 87 /mcL
[2017-07-14 15:48] LABS: Technical Review Performed By MER0007
--- NOTE | 2017-07-14 17:42 | OP ---
CC: Luther Frank MD OPERATIVE REPORT: DATE OF PROCEDURE: 07/14/17 DATE OF : 38 SURGEON: Luther Frank MD RUBBER CUTTING MACHINE TENDER: None. ANESTHESIOLOGIST: None. PRE-OP DIAGNOSES: Ascites and fever. POST-OP DIAGNOSES: Ascites and fever. OPERATIVE PROCEDURE: Abdominal ultrasound with diagnostic paracentesis. INDICATIONS: The patient is a 77-year-old male admitted to the medical service. He has known ascite s from suspected liver disease. He has developed a fever and I have been requested to perform parac entesis to rule out spontaneous bacterial peritonitis. On examination, he a frail, slender, almost cachectic looking elderly man with a somewhat protuberan t abdomen. It is soft and nontender. There is tympany in the upper abdomen. It is dull throughout the remainder. There are no scars. I discussed it with him and his family who decided that diagnostic paracentesis would be carried out . Therefore, a bedside ultrasound was used to interrogate the abdomen and the best pocket of fluid is located in the left mid abdomen in the paraumbilical region. This site is marked and then preppe d with antiseptic and a 22-gauge needle used to aspirate 20 mL of clear yellow fluid. This was dorantes ied out approximately 8 cm from the umbilicus and lateral to the rectus sheath and is carried withou t difficulty. The needle was removed, Band-Aid is placed. Specimen is sent in a sterile container to the laboratory. I did discuss the case with Dr. Russell who will arrange what study she wants done on the fluid. Ple ase let me know if I can provide any additional assistance. [id number]/[facility] #: [id number]
[2017-07-14] MEDS ORDERED: Vancomycin(*) 1,500 MG in NS 0.9% 250 ML* 250 ML IVPB ONE (21:00)
--- NOTE | 2017-07-14 21:25 | ED ---
Jose A Garcia Benjamin, scribed for Сергей Mooney MD on 07/12/17 at 1109 . Shortness of Breath - HPI Summary HPI Summary: 77yo male referred to ED from Dr. Spear. Pt started Lasix last Sunday. Pt c/ o becoming increasing SOB when walk, also reports nonproductive cough. Pt also reports bilateral LE swelling, and weakness. Pt also reports abdomen filled with fluid for about 1 week. No fever. Pt reports having CP that radiated in RUQ 1 week ago, which went away soon after. Pt started Lasix last Sunday. - History of Current Complaint Chief Complaint: EDShortnessOfBreath Time Seen by Provider: 07/12/17 09:40 Hx Obtained From: Patient, Family/Personal Care Assistant - family Onset/Duration: Gradual Onset, Lasting Weeks - 1 week, Still Present Timing: Constant Current Severity: Mild Dyspnea At: Exertion - walking Associated Signs & Symptoms: Cough (Nonproductive), Edema - abdominal - Allergy/Home Medications Allergies/Adverse Reactions: Allergies Allergy/AdvReac Type Severity Reaction Status Date / Time clams Allergy Unknown Uncoded 07/12/17 12:47 Reaction Details Home Medications: Home Medications Furosemide TAB* [Lasix TAB*] 20 mg PO DAILY 07/12/17 [History Confirmed 07/12/17 ] Pancrelipase (NF) [Creon (NF)] 3,000 - 6,000 units PO TID WITH MEALS 07/12/17 [ History Confirmed 07/12/17] Ranitidine TAB (NF) [Zantac TAB (NF)] 150 mg PO BID 07/12/17 [History Confirmed 07/12/17] Sertraline* [Zoloft*] 50 mg PO DAILY 07/12/17 [History Confirmed 07/12/17] PMH/Surg Hx/FS Hx/Imm Hx Endocrine/Hematology History: Reports: Hx Diabetes Infectious Disease History: No Infectious Disease History: Denies: Traveled Outside the [place] in Last 30 Days - Family History Known Family History: Positive: Diabetes - Social History Occupation: Retired Lives: With Family Alcohol Use: None Alcohol Amount: 4-5 beers/day Substance Use Type: Reports: None Hx Tobacco Use: No Smoking Status (MU): Unknown if Ever Smoked Review of Systems Constitutional: Negative Eyes: Negative ENT: Negative Cardiovascular: Negative Positive: Shortness Of Breath, Cough Positive: Other - swollen stomach Genitourinary: Negative Musculoskeletal: Negative Skin: Negative Positive: Weakness Psychological: Normal All Other Systems Reviewed And Are Negative: Yes Physical Exam Triage Information Reviewed: Yes Vital Signs On Initial Exam: Initial Vitals Temp Pulse Resp BP Pulse Ox 97.5 F 80 16 124/52 97 07/12/17 09:21 07/12/17 09:21 07/12/17 09:21 07/12/17 09:21 07/12/17 09:21 Vital Signs Reviewed: Yes Appearance: Positive: Well-Appearing, No Pain Distress, Well-Nourished Skin: Positive: Warm, Dry Head/Face: Positive: Normal Head/Face Inspection. Negative: Temporal Artery Tenderness, TMJ Tenderness Eyes: Positive: EOMI, STEFANO ENT: Positive: Normal ENT inspection, Hearing grossly normal Neck: Positive: Supple, Nontender, No Lymphadenopathy Respiratory/Lung Sounds: Positive: Breath Sounds Present, Decreased Breath Sounds. Negative: Rales, Rhonchi, Wheezes Cardiovascular: Positive: RRR, Pulses are Symmetrical in both Upper and Lower Extremities, Leg Edema Left - 2+ pitting edema in ankles, Leg Edema Right - 2+ pitting edema in ankles Abdomen Description: Positive: Nontender, Soft, Other: - abdominal ascites Bowel Sounds: Positive: Present Musculoskeletal: Positive: Strength/ROM Intact, Edema Left - 2+ pitting edema in ankles, Edema Right - 2+ pitting edema in ankles Neurological: Positive: Sensory/Motor Intact, Alert, Oriented to Person Place, Time Psychiatric: Positive: Affect/Mood Appropriate - [place] Coma Scale Coma Scale Total: 15 Diagnostics - Vital Signs Vital Signs Temp Pulse Resp BP Pulse Ox 07/12/17 09:45 98.6 F 73 24 109/57 97 07/12/17 09:21 97.5 F 80 16 124/52 97 - Laboratory Lab Results: Lab Results 07/12/17 07/12/17 07/12/17 Range/Units 09:50 09:50 09:50 WBC 6.3 (3.5-10.8) 10^3/ul RBC 2.99 L (4.0-5.4) 10^6/ul Hgb 11.1 L (14.0-18.0) g/dl Hct 33 L (42-52) % MCV 109 H (80-94) fL MCH 37 H (27-31) pg MCHC 34 (31-36) g/dl RDW 14 (10.5-15) % Plt Count 208 (150-450) 10^3/ul MPV 7 L (7.4-10.4) um3 Neut % (Auto) 66.0 (38-83) % Lymph % (Auto) 17.4 L (25-47) % [place] % (Auto) 13.2 H (1-9) % Eos % (Auto) 3.2 (0-6) % Baso % (Auto) 0.2 (0-2) % Absolute Neuts (auto) 4.1 (1.5-7.7) 10^3/ul Absolute Lymphs (auto) 1.1 (1.0-4.8) 10^3/ul Absolute Monos (auto) 0.8 (0-0.8) 10^3/ul Absolute Eos (auto) 0.2 (0-0.6) 10^3/ul Absolute Basos (auto) 0 (0-0.2) 10^3/ul Absolute Nucleated RBC 0.01 10^3/ul Nucleated RBC % 0.1 Sodium 136 (133-145) mmol/L Potassium 3.4 L (3.5-5.0) mmol/L Chloride 105 (101-111) mmol/L Carbon Dioxide 27 (22-32) mmol/L Anion Gap 4 (2-11) mmol/L BUN 9 (6-24) mg/dL Creatinine 0.52 L (0.67-1.17) mg/dL Est GFR ( Amer) 197.7 (>60) Est GFR (Non-Af Amer) 153.7 (>60) BUN/Creatinine Ratio 17.3 (8-20) Glucose 141 H (70-100) mg/dL Lactic Acid (0.5-2.0) mmol/L Calcium 8.2 L (8.6-10.3) mg/dL Total Bilirubin 1.50 H (0.2-1.0) mg/dL AST 58 H (13-39) U/L ALT 26 (7-52) U/L Alkaline Phosphatase 159 H (34-104) U/L Troponin I 0.01 (<0.04) ng/mL B-Natriuretic Peptide 102 H ( - 100) pg/mL Total Protein 5.0 L (6.4-8.9) g/dL Albumin 1.7 L (3.2-5.2) g/dL Globulin 3.3 (2-4) g/dL Albumin/Globulin Ratio 0.5 L (1-3) 07/12/17 Range/Units 09:50 WBC (3.5-10.8) 10^3/ul RBC (4.0-5.4) 10^6/ul Hgb (14.0-18.0) g/dl Hct (42-52) % MCV (80-94) fL MCH (27-31) pg MCHC (31-36) g/dl RDW (10.5-15) % Plt Count (150-450) 10^3/ul MPV (7.4-10.4) um3 Neut % (Auto) (38-83) % Lymph % (Auto) (25-47) % [place] % (Auto) (1-9) % Eos % (Auto) (0-6) % Baso % (Auto) (0-2) % Absolute Neuts (auto) (1.5-7.7) 10^3/ul Absolute Lymphs (auto) (1.0-4.8) 10^3/ul Absolute Monos (auto) (0-0.8) 10^3/ul Absolute Eos (auto) (0-0.6) 10^3/ul Absolute Basos (auto) (0-0.2) 10^3/ul Absolute Nucleated RBC 10^3/ul Nucleated RBC % Sodium (133-145) mmol/L Potassium (3.5-5.0) mmol/L Chloride (101-111) mmol/L Carbon Dioxide (22-32) mmol/L Anion Gap (2-11) mmol/L BUN (6-24) mg/dL Creatinine (0.67-1.17) mg/dL Est GFR ( Amer) (>60) Est GFR (Non-Af Amer) (>60) BUN/Creatinine Ratio (8-20) Glucose (70-100) mg/dL Lactic Acid 1.8 (0.5-2.0) mmol/L Calcium (8.6-10.3) mg/dL Total Bilirubin (0.2-1.0) mg/dL AST (13-39) U/L ALT (7-52) U/L Alkaline Phosphatase (34-104) U/L Troponin I (<0.04) ng/mL B-Natriuretic Peptide ( - 100) pg/mL Total Protein (6.4-8.9) g/dL Albumin (3.2-5.2) g/dL Globulin (2-4) g/dL Albumin/Globulin Ratio (1-3) Result Diagrams: 07/14/17 10:37 07/14/17 10:38 Lab Statement: Any lab studies that have been ordered have been reviewed, and results considered in the medical decision making process. - Radiology CXR Xray Interpretation: Positive (See Comments) - IMPRESSION: MODERATE RIGHT PLEURAL EFFUSION WITH RIGHT BASILAR ATELECTASIS VERSUS CONSOLIDATION Radiology Interpretation Completed By: Radiologist - ED physician has reviewed this radiology report and agrees. - EKG 1010. Cardiac Rate: NL - 66bpm EKG Rhythm: Sinus Rhythm EKG Interpretation: subacute low voltage. NO STEMI. - Additional Comments Diagnostic Additional Comments: ABDOMINAL US IMPRESSION: 1. ASCITES. 2. RIGHT PLEURAL EFFUSION. 3. CIRRHOTIC LIVER. 4. MILD GALLBLADDER WALL THICKENING Course/Dx - Course Course Of Treatment: Reviewed pts medication and allergy lists. Blood pressure noted. - Diagnoses Provider Diagnoses: Anasarca, Ascites, Pleural effusion Discharge - Discharge Plan Condition: Stable Disposition: ADMITTED TO [facility] documentation as recorded by the Jose A crisostomo Benjamin accurately reflects the service I personally performed and the decisions made by , Сергей Mooney MD.
[2017-07-14] MEDS ORDERED: Vancomycin per Pharmacy* NOTE FOLLOW UP PRN (22:26)
[2017-07-15] MEDS: Albumin Human 25%* 100 ML in PREMIX* 0 ML IV SCH ×2 (00:40→06:08)
[2017-07-15] MEDS: Sertraline* 50 MG TAB PO SCH (08:35)
[2017-07-15] MEDS: Spironolactone TAB* 25 MG PO SCH (08:35)
[2017-07-15] MEDS: PANCRELIPASE 3000 UNIT PO SCH ×3 (08:35→17:50)
[2017-07-15] MEDS: Potassium Chlor TAB* 20 MEQ TAB.ER PO SCH ×2 (08:35→21:30)
[2017-07-15] MEDS: Famotidine TAB* 20 MG PO SCH ×2 (08:35→21:30)
[2017-07-15] MEDS: Vancomycin(*) 1,000 MG in NS 0.9% 250 ML* 250 ML IVPB SCH ×2 (10:22→20:23)
[2017-07-15 11:27] LABS: Hematocrit 23 % (42-52); Mean Corpuscular HGB Conc 34 g/dl (31-36); Mean Corpuscular Hemoglobin 37 pg (27-31); Mean Platelet Volume 8 um3 (7.4-10.4); Red Blood Count 2.13 10^6/ul (4.0-5.4); Red Cell Distribution Width 15 % (10.5-15); White Blood Count 12.4 10^3/ul (3.5-10.8)
[2017-07-15 11:35] LABS: Comments Flag Yes; Mean Corpuscular Volume 110 fL (80-94)
--- NOTE | 2017-07-15 11:36 | PN ---
Subjective Date of Service: 07/15/17 Interval History: Mr. Ledbetter had an uneventful night. He is awake this morning, talking with his , and appears much better today. He is in good spirits and denies pain. He was afebrile overnight. Peritoneal fluid returned without evidence of SBP, so antibiotics were broadened to cover hcap. He does have a cough this morning with poor respiratory effort. Denies abdominal pain, diarrhea, shortness of breath. He does have orthopnea. Appetite is a little better this morning. Family History: Unchanged from Admission Social History: Unchanged from Admission Past Medical History: Unchanged from Admission Objective Active Medications: Enoxaparin Sodium (Lovenox(*)) 40 mg SUBCUT Q24H [facility] Last Admin: 07/14/17 13:49 Dose: 40 mg Famotidine (Pepcid Tab*) 20 mg PO BID [facility] PRN Reason: Protocol Last Admin: 07/15/17 08:35 Dose: 20 mg Piperacillin Sod/Tazobactam (Sod 3.375 gm/ Sodium Chloride) 100 mls @ 25 mls/ hr IVPB Q8H [facility] Last Admin: 07/15/17 04:38 Dose: 25 mls/hr Vancomycin HCl 1,000 mg/ (Sodium Chloride) 250 mls @ 166.667 mls/hr IVPB Q12H [facility] Last Admin: 07/15/17 10:22 Dose: 166.667 mls/hr Morphine Sulfate (Morphine Inj (Syringe)*) 1 mg IV Q4H PRN PRN Reason: PAIN - MODERATE TO SEVERE Pancrelipase (Creon (Nf)) 6,000 units PO TID WITH MEALS [facility] Last Admin: 07/15/17 08:35 Dose: 3,000 units Pharmacy Consult (Vancomycin Per Pharmacy*) 1 note FOLLOW UP . PRN PRN Reason: PER PROTOCOL Pharmacy Profile Note (Vancomycin Trough Check) 1 note FOLLOW UP 0830 ONE Stop: 07/16/17 08:31 Potassium Chloride (Klor Con Er Tab*) 20 meq PO BID [facility] Last Admin: 07/15/17 08:35 Dose: 20 meq Sertraline HCl (Zoloft*) 50 mg PO DAILY [facility] Last Admin: 07/15/17 08:35 Dose: 50 mg Spironolactone (Aldactone Tab*) 25 mg PO DAILY [facility] Last Admin: 07/15/17 08:35 Dose: 25 mg Vital Signs 07/14/17 07/14/17 07/14/17 13:01 15:10 16:00 Temperature 99.4 F 99.6 F Pulse Rate 100 97 Respiratory 12 20 Rate Blood Pressure 97/51 101/42 (mmHg) O2 Sat by Pulse 97 96 96 Oximetry 07/14/17 07/14/17 07/14/17 18:52 19:14 19:46 Temperature 98.8 F 98.5 F 98.3 F Pulse Rate 86 88 84 Respiratory 16 20 20 Rate Blood Pressure 99/46 110/44 105/45 (mmHg) O2 Sat by Pulse 98 99 Oximetry 07/14/17 07/14/17 07/14/17 20:00 20:20 23:35 Temperature 98.7 F Pulse Rate 80 Respiratory 16 16 Rate Blood Pressure 98/43 98/42 (mmHg) O2 Sat by Pulse 100 Oximetry 07/14/17 07/15/17 07/15/17 23:36 00:00 00:48 Temperature 97.8 F 97.8 F Pulse Rate 72 74 Respiratory 20 18 Rate Blood Pressure 89/35 88/41 (mmHg) O2 Sat by Pulse 98 98 99 Oximetry 07/15/17 07/15/17 07/15/17 01:26 03:12 06:28 Temperature 97.5 F 97.8 F 98.2 F Pulse Rate 69 67 72 Respiratory 16 20 16 Rate Blood Pressure 89/41 89/42 86/43 (mmHg) O2 Sat by Pulse 97 96 Oximetry 07/15/17 07/15/17 07:25 07:30 Temperature 97.5 F Pulse Rate 72 Respiratory 14 14 Rate Blood Pressure 94/43 (mmHg) O2 Sat by Pulse 98 Oximetry Oxygen Devices in Use Now: Nasal Cannula - 2L placed for 89% saturation on RA Appearance: alert, ill-appearing, temporal wasting Eyes: No Scleral Icterus, PERRLA Ears/Nose/Mouth/Throat: NL Teeth, Lips, Gums, Clear Oropharnyx Neck: NL Appearance and Movements; NL JVP, Trachea Midline Respiratory: Symmetrical Chest Expansion and Respiratory Effort, - - reduced breath sounds at both bases. Cardiovascular: NL Sounds; No Murmurs; No JVD, RRR Abdominal: - - distended, not tense. liver palpable at costal margin. +fluid wave. nontender. Lymphatic: No Cervical Adenopathy, No Axillary Adenopathy Extremities: - - 1+ pitting edema b/l Skin: No Rash or Ulcers Neurological: Alert and Oriented x 3, - - no asterixis Result Diagrams: 07/14/17 10:37 07/14/17 10:38 Additional Lab and Data: Lab Results 07/12/17 07/12/17 07/12/17 Range/Units 09:50 09:50 09:50 WBC 6.3 (3.5-10.8) 10^3/ul RBC 2.99 L (4.0-5.4) 10^6/ul Hgb 11.1 L (14.0-18.0) g/dl Hct 33 L (42-52) % MCV 109 H (80-94) fL MCH 37 H (27-31) pg MCHC 34 (31-36) g/dl RDW 14 (10.5-15) % Plt Count 208 (150-450) 10^3/ul MPV 7 L (7.4-10.4) um3 Neut % (Auto) 66.0 (38-83) % Lymph % (Auto) 17.4 L (25-47) % [place] % (Auto) 13.2 H (1-9) % Eos % (Auto) 3.2 (0-6) % Baso % (Auto) 0.2 (0-2) % Absolute Neuts (auto) 4.1 (1.5-7.7) 10^3/ul Absolute Lymphs (auto) 1.1 (1.0-4.8) 10^3/ul Absolute Monos (auto) 0.8 (0-0.8) 10^3/ul Absolute Eos (auto) 0.2 (0-0.6) 10^3/ul Absolute Basos (auto) 0 (0-0.2) 10^3/ul Absolute Nucleated RBC 0.01 10^3/ul Nucleated RBC % 0.1 Sodium 136 (133-145) mmol/L Potassium 3.4 L (3.5-5.0) mmol/L Chloride 105 (101-111) mmol/L Carbon Dioxide 27 (22-32) mmol/L Anion Gap 4 (2-11) mmol/L BUN 9 (6-24) mg/dL Creatinine 0.52 L (0.67-1.17) mg/dL Est GFR ( Amer) 197.7 (>60) Est GFR (Non-Af Amer) 153.7 (>60) BUN/Creatinine Ratio 17.3 (8-20) Glucose 141 H (70-100) mg/dL Lactic Acid (0.5-2.0) mmol/L Calcium 8.2 L (8.6-10.3) mg/dL Total Bilirubin 1.50 H (0.2-1.0) mg/dL AST 58 H (13-39) U/L ALT 26 (7-52) U/L Alkaline Phosphatase 159 H (34-104) U/L Troponin I 0.01 (<0.04) ng/mL B-Natriuretic Peptide 102 H ( - 100) pg/mL Total Protein 5.0 L (6.4-8.9) g/dL Albumin 1.7 L (3.2-5.2) g/dL Globulin 3.3 (2-4) g/dL Albumin/Globulin Ratio 0.5 L (1-3) 07/12/17 Range/Units 09:50 WBC (3.5-10.8) 10^3/ul RBC (4.0-5.4) 10^6/ul Hgb (14.0-18.0) g/dl Hct (42-52) % MCV (80-94) fL MCH (27-31) pg MCHC (31-36) g/dl RDW (10.5-15) % Plt Count (150-450) 10^3/ul MPV (7.4-10.4) um3 Neut % (Auto) (38-83) % Lymph % (Auto) (25-47) % [place] % (Auto) (1-9) % Eos % (Auto) (0-6) % Baso % (Auto) (0-2) % Absolute Neuts (auto) (1.5-7.7) 10^3/ul Absolute Lymphs (auto) (1.0-4.8) 10^3/ul Absolute Monos (auto) (0-0.8) 10^3/ul Absolute Eos (auto) (0-0.6) 10^3/ul Absolute Basos (auto) (0-0.2) 10^3/ul Absolute Nucleated RBC 10^3/ul Nucleated RBC % Sodium (133-145) mmol/L Potassium (3.5-5.0) mmol/L Chloride (101-111) mmol/L Carbon Dioxide (22-32) mmol/L Anion Gap (2-11) mmol/L BUN (6-24) mg/dL Creatinine (0.67-1.17) mg/dL Est GFR ( Amer) (>60) Est GFR (Non-Af Amer) (>60) BUN/Creatinine Ratio (8-20) Glucose (70-100) mg/dL Lactic Acid 1.8 (0.5-2.0) mmol/L Calcium (8.6-10.3) mg/dL Total Bilirubin (0.2-1.0) mg/dL AST (13-39) U/L ALT (7-52) U/L Alkaline Phosphatase (34-104) U/L Troponin I (<0.04) ng/mL B-Natriuretic Peptide ( - 100) pg/mL Total Protein (6.4-8.9) g/dL Albumin (3.2-5.2) g/dL Globulin (2-4) g/dL Albumin/Globulin Ratio (1-3) Microbiology and Other Data: Microbiology 07/14/17 13:00 Gram Stain - Final Body Fluid - Peritoneal Assess/Plan/Problems-Billing Assessment: 1. Sepsis Source remains unclear at this time. SBP was ruled out yesterday with diagnostic paracentesis. Blood and urine cultures are negative, no diarrhea. His CXR is unchanged, however he may have an underlying pneumonia. I am covering him for HCAP at this time. He and his wish to pursue a CT of his chest to evaluate further. Continue albumin for resuscitation today. 2. Decomensated Liver Failure. This is a new diagnosis for him and his family. I have discussed the diagnosis of cirrhosis with them at length. He quit drinking this Spring because he was becoming so weak and deconditioned. Prior to that he drank about 6 drinks per day since he was in his teens. He has no history of IV drug abuse and no exposure to hepatitis that he knows of. No one in his family has history of liver disease. It now appears that an infectious source caused this decompensation--continue empiric antibiotics as above. Denies melena and hgb is stable, so I have a low suspicion for a GI bleed as the etiology of his decompensation. Hepatitis panel is negative. Given his age and lack of other stigmata, will not pursue work up of infiltrative etiologies. Holding the IV lasix and spironolactone for now; diuresed well on the first day of admission, but will resuscitate him today given #1. will also check TTE to rule out cardiac cirrhosis/ascites. He is not on any medications that are hepatotoxic. Ideally he will have a therapeutic paracentesis, however I'd like him to receive more antibiotics and become more hemodynamically stable prior to a large volume paracentesis. 3. Coagulopathy. Likely related to #1. No bleeding. 3. Pleural Effusion most likely related to liver failure and hypoalbuminemia. No O2 requirement. 4. Severe protein malnourishment Again, likely related to liver failure. Appreciate nutrition input. Trial albumin. 5. Deconditioning Appreciate PT input. 6. Disposition. He and his family understand the poor prognosis of liver failure in the setting of severe deconditioning. We discussed hospice, and they want to take him home with hospice. DNR/DNI.
[2017-07-15 11:43] LABS: Albumin 2.8 g/dL (3.2-5.2); BUN/Creatinine Ratio 14.4 (8-20); Calcium 8.5 mg/dL (8.6-10.3); EGFR Non-African American 81.6 (>60); Globulin 2.1 g/dL (2-4); Potassium 3.8 mmol/L (3.5-5.0); Total Bilirubin 1.7 mg/dL (0.2-1.0); Total Protein 4.9 g/dL (6.4-8.9)
[2017-07-15] MEDS ORDERED: Iodixanol* (CONTRAST) 320 MG/ML 100 ML SDV IV ONE (13:14)
[2017-07-15] MEDS: Enoxaparin(*) 40 MG/0.4 ML SYR SUBCUT SCH (13:42)
[2017-07-15] MEDS: Albumin Human 5%* 500 ML in PREMIX* 0 ML IV SCH ×2 (14:26→20:29)
[2017-07-15 18:06] LABS: Hematocrit 24 % (42-52); Hemoglobin 8.3 g/dl (14.0-18.0); Mean Corpuscular HGB Conc 34 g/dl (31-36); Mean Corpuscular Hemoglobin 38 pg (27-31); Mean Platelet Volume 8 um3 (7.4-10.4); Red Blood Count 2.21 10^6/ul (4.0-5.4); Red Cell Distribution Width 15 % (10.5-15); White Blood Count 12.2 10^3/ul (3.5-10.8)
[2017-07-15 18:29] LABS: Comments Flag Yes; Mean Corpuscular Volume 110 fL (80-94)
[2017-07-15 18:30] LABS: Add Diff/Slide Review? Manual Diff Added
[2017-07-15 18:51] LABS: Immature Granulocytes 1 % (0-9); Neutrophil % 88 % (38-83); RBC Morphology Normal (Normal)
[2017-07-15 18:52] LABS: Add Path Review? YES
--- NOTE | 2017-07-15 19:01 | RAD ---
INDICATION: Sepsis, cough, pleural effusions evaluate for abdominal abscess. COMPARISON: Comparison is made with a prior CT of the chest, abdomen and pelvis from April 25, 2017. TECHNIQUE: A CT scan of the chest, abdomen and pelvis was performed with intravenous and oral contrast following intravenous injection of 85 ml of Visipaque 320 nonionic contrast. Contiguous axial sections were obtained from the lung apices through the symphysis pubis. Images were reconstructed in the coronal and sagittal planes. FINDINGS: There is a moderate size right pleural effusion and a small left pleural effusion. There are bilateral lower lobe infiltrates suggestive of atelectasis. In addition there are scattered patchy infiltrates present in the left upper lobe. There are calcified mediastinal lymph nodes in the pretracheal, precarinal, aorticopulmonary window and subcarinal regions measuring up to 1.1 cm in transverse dimension which appears similar to the prior study. The heart is within normal limits in size. There are coronary artery calcifications present. No pericardial effusion is present. The aorta is normal in caliber and demonstrates homogeneous contrast opacification. There is mild calcific plaque present. The liver and spleen are normal in size. The liver is heterogeneous and decreased in attenuation consistent with fatty infiltration with areas of sparing. The gallbladder appears contracted. No calcific gallstones are seen. The pancreas is atrophic. There are calcifications within the pancreatic head likely secondary to chronic pancreatitis which are unchanged. The kidneys and adrenal glands are normal in size. There is no evidence for hydronephrosis. No significant focal renal abnormality is seen. The aorta is normal in caliber and there is moderate calcific plaque present. There is a mildly prominent lymph node in the retroperitoneum in the left periaortic region measuring 1 cm in transverse dimension which is unchanged from the prior study. The stomach, small and large bowel appear nondistended. The appendix appears to be within normal limits. There is moderate descending and sigmoid diverticulosis. There is no evidence for diverticulitis or colitis. No abscess is seen. There is a moderate to large amount of ascites present. No free intraperitoneal air is seen. There is a small amount of air present within the rectus muscles in the anterior abdominal wall on the right side possibly from an intramuscular injection. No significant focal osseous abnormality is seen. IMPRESSION: 1. MODERATE RIGHT AND SMALL LEFT PLEURAL EFFUSIONS. 2. PATCHY LEFT UPPER LOBE INFILTRATE. 3. MODERATE TO LARGE AMOUNT OF ASCITES. 4. NO EVIDENCE FOR ABDOMINAL ABSCESS. 4. HEPATIC STEATOSIS.
--- NOTE | 2017-07-15 19:14 | PN ---
Hospitalist Progress Note Called by RN for a bloody bowel movement. The BM was reported to be dark red. I saw and examined Mr. Ledbetter, he feels well and has no complaints. Denies lightheadedness or dizziness, shortness of breath. BP 95/49 HR 76 Alert, no distress, comfortable RRR Abdomen soft, distended, not tense. Liver palpable at costal margin. Abdomen is nontender. GI bleed--upper versus lower; concerning for upper given new diagnosis of cirrhosis Mr. Ledbetter has two working IVs Start IV protonix Start IV octreotide Already on abx, no need for additional sbp prophylaxis Will call GI apron worker to inform them Hgb fell today from yesterday. Recheck hgb at 10pm, typed and screened. Continue albumin for volume expansion. DC lovenox ppx
--- NOTE | 2017-07-15 21:28 | CONSULT ---
Consult Consult: Reason for Consultation: Hematochezia HPI: 77 year old male admitted with new onset ascites and was undergoing diuresis until tonight he had a large bowel movement mixed with blood. He denies any associated chest pain, nausea, emesis, melena, or previous episode. His Hb was noted to be in 10s initially but repeat today has been in 8s. GI consulted for evaluation. Patient denies any previous diagnosis of PUD or hematemesis. Admits to significant alcoholism previously but denies active alcohol use. No history of IVDU or risk factors for hepatitis C. ROS: 10 point review of systems performed is negative unless specified in HPI Past Medical History Diabetes Alcoholism ALL NKDA MEDS: Active Medications Generic Name Dose Route Start Last Admin Trade Name Freq PRN Reason Stop Dose Admin Famotidine 20 mg 07/12/17 21:00 07/15/17 08:35 Pepcid Tab* PO 20 mg BID [facility] Administration Protocol Piperacillin Sod/Tazobactam 100 mls @ 25 mls/hr 07/14/17 20:30 07/15/17 12:34 Sod 3.375 gm/ Sodium Chloride IVPB 25 mls/hr Q8H [facility] Administration Vancomycin HCl 1,000 mg/ 250 mls @ 166.667 mls/hr 07/15/17 09:00 07/15/17 20: 23 Sodium Chloride IVPB 166.667 mls/hr Q12H [facility] Administration Albumin Human 500 ml/ IV 500 mls @ 0 mls/hr 07/15/17 14:00 07/15/17 20:29 Solution IV 250 mls/hr Q6H [facility] Administration As Directed Octreotide Acetate 500 mcg/ 101 mls @ 0 mls/hr 07/15/17 20:00 Sodium Chloride IVPB Q20H [facility] Protocol Per Protocol Morphine Sulfate 1 mg 07/14/17 15:40 Morphine Inj (Syringe)* IV Q4H PRN PAIN - MODERATE TO SEVERE Pancrelipase 6,000 units 07/12/17 13:00 07/15/17 17:50 Creon (Nf) PO 3,000 units TID WITH MEALS [facility] Administration Pantoprazole Sodium 40 mg 07/15/17 19:00 Protonix Iv* IV Q24H [facility] Pharmacy Consult 1 note 07/14/17 22:26 Vancomycin Per Pharmacy* FOLLOW UP . PRN PER PROTOCOL Pharmacy Profile Note 1 note 07/16/17 08:30 Vancomycin Trough Check FOLLOW UP 07/16/17 08:31 0830 ONE Potassium Chloride 20 meq 07/12/17 21:00 07/15/17 08:35 Klor Con Er Tab* PO 20 meq BID [facility] Administration Sertraline HCl 50 mg 07/13/17 09:00 07/15/17 08:35 Zoloft* PO 50 mg DAILY [facility] Administration Initial Vitals Temp Pulse Resp BP Pulse Ox 97.5 F 80 16 124/52 97 07/12/17 09:21 07/12/17 09:21 07/12/17 09:21 07/12/17 09:21 07/12/17 09:21 GEN: Appears comfortable in no acute distress HEENT: Anicteric sclera CHEST: clear to auscultation bilaterally CV: Regular rate rhythm s1 s2 no rubs or gallops ABD: distended, nontender throughout, normoactive bowel sounds EXT: + lower extremity edema Labs: Sodium 137 mmol/L (133-145) 07/15/17 10:55 Potassium 3.8 mmol/L (3.5-5.0) 07/15/17 10:55 BUN 13 mg/dL (6-24) 07/15/17 10:55 Creatinine 0.90 mg/dL (0.67-1.17) 07/15/17 10:55 Hemoglobin A1c 5.0 % (Less than 6.0) 07/12/17 09:50 Calcium 8.5 mg/dL (8.6-10.3) L 07/15/17 10:55 Magnesium 1.9 mg/dL (1.9-2.7) 07/13/17 06:16 AST 88 U/L (13-39) H 07/15/17 10:55 ALT 22 U/L (7-52) 07/15/17 10:55 Laboratory Last Values WBC 12.2 10^3/ul (3.5-10.8) H 07/15/17 17:57 RBC 2.21 10^6/ul (4.0-5.4) L 07/15/17 17:57 Hgb 8.3 g/dl (14.0-18.0) L 07/15/17 17:57 Hct 24 % (42-52) L 07/15/17 17:57 MCV 110 fL (80-94) H 07/15/17 17:57 MCH 38 pg (27-31) H 07/15/17 17:57 MCHC 34 g/dl (31-36) 07/15/17 17:57 RDW 15 % (10.5-15) 07/15/17 17:57 Plt Count 164 10^3/ul (150-450) 07/15/17 17:57 MPV 8 um3 (7.4-10.4) 07/15/17 17:57 Immature Gran % (Auto) 1 % (0-9) 07/15/17 17:57 Neut % (Auto) 83.1 % (38-83) H 07/15/17 10:55 Lymph % (Auto) 8.4 % (25-47) L 07/15/17 10:55 [place] % (Auto) 7.5 % (1-9) 07/15/17 10:55 Eos % (Auto) 0.7 % (0-6) 07/15/17 10:55 Baso % (Auto) 0.3 % (0-2) 07/15/17 10:55 Absolute Neuts (auto) 10.0 10^3/ul (1.5-7.7) H 07/15/17 17:57 Absolute Lymphs (auto) 1.0 10^3/ul (1.0-4.8) 07/15/17 17:57 Absolute Monos (auto) 1.0 10^3/ul (0-0.8) H 07/15/17 17:57 Absolute Eos (auto) 0.2 10^3/ul (0-0.6) 07/15/17 17:57 Absolute Basos (auto) 0 10^3/ul (0-0.2) 07/15/17 17:57 Absolute Nucleated RBC 0 10^3/ul 07/15/17 17:57 Neutrophils % 88 % (38-83) H 07/15/17 17:57 Band Neutrophils % 1 % (0-8) 07/15/17 17:57 Lymphocytes % 7 % (25-47) L 07/15/17 17:57 Monocytes % 4 % (0-13) 07/15/17 17:57 Nucleated RBC % 0 07/15/17 10:55 Normal RBC Morphology Normal (Normal) 07/15/17 17:57 INR (Anticoag Therapy) 1.58 (0.89-1.11) H 07/15/17 10:55 Sodium 137 mmol/L (133-145) 07/15/17 10:55 Potassium 3.8 mmol/L (3.5-5.0) 07/15/17 10:55 Chloride 103 mmol/L (101-111) 07/15/17 10:55 Carbon Dioxide 30 mmol/L (22-32) 07/15/17 10:55 Anion Gap 4 mmol/L (2-11) 07/15/17 10:55 BUN 13 mg/dL (6-24) 07/15/17 10:55 Creatinine 0.90 mg/dL (0.67-1.17) 07/15/17 10:55 Est GFR ( Amer) 105.0 (>60) 07/15/17 10:55 Est GFR (Non-Af Amer) 81.6 (>60) 07/15/17 10:55 BUN/Creatinine Ratio 14.4 (8-20) 07/15/17 10:55 Glucose 130 mg/dL (70-100) H 07/15/17 10:55 Hemoglobin A1c 5.0 % (Less than 6.0) 07/12/17 09:50 Lactic Acid 1.4 mmol/L (0.5-2.0) 07/15/17 10:55 Calcium 8.5 mg/dL (8.6-10.3) L 07/15/17 10:55 Magnesium 1.9 mg/dL (1.9-2.7) 07/13/17 06:16 Total Bilirubin 1.70 mg/dL (0.2-1.0) H 07/15/17 10:55 AST 88 U/L (13-39) H 07/15/17 10:55 ALT 22 U/L (7-52) 07/15/17 10:55 Alkaline Phosphatase 102 U/L (34-104) 07/15/17 10:55 Ammonia 44 mol/L (16-53) 07/14/17 12:10 Troponin I 0.01 ng/mL (<0.04) 07/12/17 15:25 C-Reactive Protein 22.33 mg/L (< 5.00) H 07/12/17 12:45 B-Natriuretic Peptide 102 pg/mL (-100) H 07/12/17 09:50 Total Protein 4.9 g/dL (6.4-8.9) L 07/15/17 10:55 Albumin 2.8 g/dL (3.2-5.2) L 07/15/17 10:55 Globulin 2.1 g/dL (2-4) 07/15/17 10:55 Albumin/Globulin Ratio 1.3 (1-3) 07/15/17 10:55 Prealbumin < 3 mg/dL (18-38) L 07/12/17 09:50 TSH 6.75 mcIU/mL (0.34-5.60) H 07/12/17 09:50 Free T4 1.44 ng/dL (0.61-1.12) H 07/12/17 09:50 Total T3 0.58 ng/mL (0.87-1.78) L 07/12/17 09:50 Urine Color Straw 07/12/17 16:00 Urine Appearance Clear 07/12/17 16:00 Urine pH 5.0 (5-9) 07/12/17 16:00 Ur Specific [place] 1.005 (1.010-1.030) L 07/12/17 16:00 Urine Protein Negative (Negative) 07/12/17 16:00 Urine Ketones Negative (Negative) 07/12/17 16:00 Urine Blood Negative (Negative) 07/12/17 16:00 Urine Nitrate Negative (Negative) 07/12/17 16:00 Urine Bilirubin Negative (Negative) 07/12/17 16:00 Urine Urobilinogen Negative (Negative) 07/12/17 16:00 Ur Leukocyte Esterase Negative (Negative) 07/12/17 16:00 Urine Glucose Negative (Negative) 07/12/17 16:00 Fluid Source Peritonial fluid 07/14/17 13:00 Fluid Volume 0.5 mL 07/14/17 13:00 Fluid Color Yellow 07/14/17 13:00 Fluid Appearance Clear 07/14/17 13:00 Fluid WBC 87 /mcL ([id number]) 07/14/17 13:00 Fluid RBC 5 /mcL 07/14/17 13:00 Fluid Tot Cell Count 100 07/14/17 13:00 Fluid Neutrophils 21 % 07/14/17 13:00 Fluid Lymphocytes 5 % 07/14/17 13:00 Fluid Monocytes 74 % 07/14/17 13:00 Hepatitis A IgM Ab Nonreactive (Nonreactive) 07/14/17 10:37 Hep Bs Antigen Nonreactive (Nonreactive) 07/14/17 10:37 Hep B Core IgM Ab Nonreactive (Nonreactive) 07/14/17 10:37 Hepatitis C Antibody Nonreactive (Nonreactive) 07/14/17 10:37 Blood Type O Positive 07/15/17 10:55 Antibody Screen Negative 07/15/17 10:55 Impression: 77 year old male with evidence of cirrhosis likely secondary to alcohol and evidence decompensated liver disease. Today, his hospital course is complicated by hematochezia. 1. Hematochezia: Etiology can include hemorrhoidal bleeding, ischemic colitis, diverticular hemorrhage, malignancy, or less likely upper sources given hematochezia from an upper source would typically manifest of hemodynamic instability. However, given diagnosis of cirrhosis, an upper cause for bleeding should be ruled out. 2. Agree with IV acid suppression, IV antibiotics for gram negative coverage, and octreotide. Please keep 2 large bore IVs, type and screen and transfuse if Hb is <8. Do not overtransfuse. 3. Keep NPO p MN for EGD tomorrow morning. 4. Please notify me if patient has hemodynamic instability or significant drop in Hb tonight.
[2017-07-15] MEDS: Pantoprazole IV* 40 MG IV SCH (21:30)
[2017-07-15 22:11] LABS: Hematocrit 24 % (42-52); Hemoglobin 8.3 g/dl (14.0-18.0); Mean Corpuscular HGB Conc 34 g/dl (31-36); Mean Corpuscular Hemoglobin 38 pg (27-31); Mean Platelet Volume 8 um3 (7.4-10.4); Red Blood Count 2.19 10^6/ul (4.0-5.4); Red Cell Distribution Width 15 % (10.5-15); White Blood Count 10.5 10^3/ul (3.5-10.8)
[2017-07-15 22:12] LABS: Mean Corpuscular Volume 110 fL (80-94)
[2017-07-16] MEDS: Albumin Human 5%* 500 ML in PREMIX* 0 ML IV SCH ×2 (04:49→11:48)
[2017-07-16] MEDS ORDERED: Vancomycin Trough Check NOTE FOLLOW UP ONE (08:30)
[2017-07-16] MEDS: PANCRELIPASE 3000 UNIT PO SCH ×3 (08:32→19:10)
[2017-07-16] MEDS: Famotidine TAB* 20 MG PO SCH (08:33)
[2017-07-16] MEDS: Potassium Chlor TAB* 20 MEQ TAB.ER PO SCH ×2 (08:33→20:29)
[2017-07-16] MEDS: Sertraline* 50 MG TAB PO SCH (08:33)
[2017-07-16 10:10] LABS: Albumin 3.2 g/dL (3.2-5.2); BUN/Creatinine Ratio 15.2 (8-20); Calcium 8.7 mg/dL (8.6-10.3); EGFR Non-African American 94.9 (>60); Globulin 2.2 g/dL (2-4); Potassium 4.2 mmol/L (3.5-5.0); Total Bilirubin 1.8 mg/dL (0.2-1.0); Total Protein 5.4 g/dL (6.4-8.9)
[2017-07-16 10:45] LABS: Hematocrit 26 % (42-52); Hemoglobin 8.9 g/dl (14.0-18.0); Mean Corpuscular HGB Conc 34 g/dl (31-36); Mean Corpuscular Hemoglobin 37 pg (27-31); Mean Corpuscular Volume 111 fL (80-94); Mean Platelet Volume 8 um3 (7.4-10.4); Red Blood Count 2.37 10^6/ul (4.0-5.4); Red Cell Distribution Width 15 % (10.5-15); White Blood Count 7.5 10^3/ul (3.5-10.8)
--- NOTE | 2017-07-16 11:54 | PN ---
Subjective Date of Service: 07/16/17 Interval History: Evaluated by GI overnight, who agreed with protonix, octreotide, and plans to do EGD today. His hgb was stable and he had no further bleeding overnight. He feels good this morning with no complaints, but he does feel anxious and unsure about the plan. He denies epigastric pain, nausea, vomiting, diarrhea, lightheadedness. Family History: Unchanged from Admission Social History: Unchanged from Admission Past Medical History: Unchanged from Admission Objective Active Medications: Famotidine (Pepcid Tab*) 20 mg PO BID MARIO PRN Reason: Protocol Last Admin: 07/16/17 08:33 Dose: 20 mg Piperacillin Sod/Tazobactam (Sod 3.375 gm/ Sodium Chloride) 100 mls @ 25 mls/ hr IVPB Q8H [facility] Last Admin: 07/16/17 07:56 Dose: 25 mls/hr Vancomycin HCl 1,000 mg/ (Sodium Chloride) 250 mls @ 166.667 mls/hr IVPB Q12H [facility] Last Admin: 07/15/17 20:23 Dose: 166.667 mls/hr Octreotide Acetate 500 mcg/ (Sodium Chloride) 101 mls @ 0 mls/hr IVPB Q20H MARIO ; Per Protocol PRN Reason: Protocol Last Admin: 07/15/17 22:25 Dose: 25 mls/hr Octreotide Acetate 500 mcg/ (Sodium Chloride) 101 mls @ 0 mls/hr IVPB Q20H MARIO ; 0 MCG/HR PRN Reason: Protocol Last Admin: 07/16/17 11:40 Dose: 5 mls/hr Morphine Sulfate (Morphine Inj (Syringe)*) 1 mg IV Q4H PRN PRN Reason: PAIN - MODERATE TO SEVERE Pancrelipase (Creon (Nf)) 6,000 units PO TID WITH MEALS [facility] Last Admin: 07/16/17 08:32 Dose: 6,000 units Pantoprazole Sodium (Protonix Iv*) 40 mg IV Q24H [facility] Last Admin: 07/15/17 21:30 Dose: 40 mg Pharmacy Consult (Vancomycin Per Pharmacy*) 1 note FOLLOW UP . PRN PRN Reason: PER PROTOCOL Pharmacy Profile Note (Vancomycin Trough Check) 1 note FOLLOW UP 0900 ONE Stop: 07/18/17 09:01 Potassium Chloride (Klor Con Er Tab*) 20 meq PO BID MARIO Last Admin: 07/16/17 08:33 Dose: 20 meq Sertraline HCl (Zoloft*) 50 mg PO DAILY [facility] Last Admin: 07/16/17 08:33 Dose: 50 mg Vital Signs 07/15/17 07/15/17 07/15/17 14:30 14:56 16:12 Temperature 98.1 F 97.9 F 99.8 F Pulse Rate 74 72 76 Respiratory 16 16 14 Rate Blood Pressure 103/47 103/48 93/46 (mmHg) O2 Sat by Pulse 100 100 100 Oximetry 07/15/17 07/15/17 07/15/17 17:31 17:52 19:04 Temperature 98.0 F 98.6 F 99.3 F Pulse Rate 73 74 76 Respiratory 14 16 14 Rate Blood Pressure 103/45 120/55 95/49 (mmHg) O2 Sat by Pulse 99 100 100 Oximetry 07/15/17 07/15/17 07/15/17 20:00 20:42 21:25 Temperature 97.6 F 98.0 F Pulse Rate 77 71 Respiratory 16 20 16 Rate Blood Pressure 108/52 107/50 (mmHg) O2 Sat by Pulse 98 98 Oximetry 07/15/17 07/16/17 07/16/17 23:31 00:00 04:35 Temperature 97.9 F 97.7 F Pulse Rate 66 64 Respiratory 15 16 Rate Blood Pressure 91/49 109/60 (mmHg) O2 Sat by Pulse 97 97 97 Oximetry 07/16/17 07/16/17 07/16/17 04:50 06:34 07:32 Temperature 97.9 F 97.8 F Pulse Rate 76 62 63 Respiratory 16 16 18 Rate Blood Pressure 113/55 108/55 115/52 (mmHg) O2 Sat by Pulse 92 98 98 Oximetry Oxygen Devices in Use Now: Nasal Cannula - 2L placed for 89% saturation on RA Appearance: Alert watching TV in bed, tearful, thin Eyes: No Scleral Icterus, PERRLA Ears/Nose/Mouth/Throat: NL Teeth, Lips, Gums, Clear Oropharnyx, - - temporal wasting Neck: NL Appearance and Movements; NL JVP Respiratory: Symmetrical Chest Expansion and Respiratory Effort, - - decreased breath sounds alf up right lung field, 1/4 up left lung field Cardiovascular: NL Sounds; No Murmurs; No JVD, RRR Abdominal: - - distended, nontender, fluid wave, liver palpable below costal margin Lymphatic: No Cervical Adenopathy Extremities: - - pitting edema b/l unchanged Neurological: Alert and Oriented x 3, - - no asterixis Result Diagrams: 07/16/17 09:34 07/16/17 09:34 Additional Lab and Data: Lab Results 07/12/17 07/12/17 07/12/17 Range/Units 09:50 09:50 09:50 WBC 6.3 (3.5-10.8) 10^3/ul RBC 2.99 L (4.0-5.4) 10^6/ul Hgb 11.1 L (14.0-18.0) g/dl Hct 33 L (42-52) % MCV 109 H (80-94) fL MCH 37 H (27-31) pg MCHC 34 (31-36) g/dl RDW 14 (10.5-15) % Plt Count 208 (150-450) 10^3/ul MPV 7 L (7.4-10.4) um3 Neut % (Auto) 66.0 (38-83) % Lymph % (Auto) 17.4 L (25-47) % Trigg % (Auto) 13.2 H (1-9) % Eos % (Auto) 3.2 (0-6) % Baso % (Auto) 0.2 (0-2) % Absolute Neuts (auto) 4.1 (1.5-7.7) 10^3/ul Absolute Lymphs (auto) 1.1 (1.0-4.8) 10^3/ul Absolute Monos (auto) 0.8 (0-0.8) 10^3/ul Absolute Eos (auto) 0.2 (0-0.6) 10^3/ul Absolute Basos (auto) 0 (0-0.2) 10^3/ul Absolute Nucleated RBC 0.01 10^3/ul Nucleated RBC % 0.1 Sodium 136 (133-145) mmol/L Potassium 3.4 L (3.5-5.0) mmol/L Chloride 105 (101-111) mmol/L Carbon Dioxide 27 (22-32) mmol/L Anion Gap 4 (2-11) mmol/L BUN 9 (6-24) mg/dL Creatinine 0.52 L (0.67-1.17) mg/dL Est GFR ( Amer) 197.7 (>60) Est GFR (Non-Af Amer) 153.7 (>60) BUN/Creatinine Ratio 17.3 (8-20) Glucose 141 H (70-100) mg/dL Lactic Acid (0.5-2.0) mmol/L Calcium 8.2 L (8.6-10.3) mg/dL Total Bilirubin 1.50 H (0.2-1.0) mg/dL AST 58 H (13-39) U/L ALT 26 (7-52) U/L Alkaline Phosphatase 159 H (34-104) U/L Troponin I 0.01 (<0.04) ng/mL B-Natriuretic Peptide 102 H ( - 100) pg/mL Total Protein 5.0 L (6.4-8.9) g/dL Albumin 1.7 L (3.2-5.2) g/dL Globulin 3.3 (2-4) g/dL Albumin/Globulin Ratio 0.5 L (1-3) 07/12/17 Range/Units 09:50 WBC (3.5-10.8) 10^3/ul RBC (4.0-5.4) 10^6/ul Hgb (14.0-18.0) g/dl Hct (42-52) % MCV (80-94) fL MCH (27-31) pg MCHC (31-36) g/dl RDW (10.5-15) % Plt Count (150-450) 10^3/ul MPV (7.4-10.4) um3 Neut % (Auto) (38-83) % Lymph % (Auto) (25-47) % Trigg % (Auto) (1-9) % Eos % (Auto) (0-6) % Baso % (Auto) (0-2) % Absolute Neuts (auto) (1.5-7.7) 10^3/ul Absolute Lymphs (auto) (1.0-4.8) 10^3/ul Absolute Monos (auto) (0-0.8) 10^3/ul Absolute Eos (auto) (0-0.6) 10^3/ul Absolute Basos (auto) (0-0.2) 10^3/ul Absolute Nucleated RBC 10^3/ul Nucleated RBC % Sodium (133-145) mmol/L Potassium (3.5-5.0) mmol/L Chloride (101-111) mmol/L Carbon Dioxide (22-32) mmol/L Anion Gap (2-11) mmol/L BUN (6-24) mg/dL Creatinine (0.67-1.17) mg/dL Est GFR ( Amer) (>60) Est GFR (Non-Af Amer) (>60) BUN/Creatinine Ratio (8-20) Glucose (70-100) mg/dL Lactic Acid 1.8 (0.5-2.0) mmol/L Calcium (8.6-10.3) mg/dL Total Bilirubin (0.2-1.0) mg/dL AST (13-39) U/L ALT (7-52) U/L Alkaline Phosphatase (34-104) U/L Troponin I (<0.04) ng/mL B-Natriuretic Peptide ( - 100) pg/mL Total Protein (6.4-8.9) g/dL Albumin (3.2-5.2) g/dL Globulin (2-4) g/dL Albumin/Globulin Ratio (1-3) Microbiology and Other Data: Microbiology 07/14/17 13:00 Gram Stain - Final Body Fluid - Peritoneal Assess/Plan/Problems-Billing Assessment: 1. Acute Blood Loss Anemia. Suspect a lower GI source given the description of bloody stool, however need to rule out an upper bleed given his recent diagnosis of cirrhosis. Hemodynamically stable; Hgb stable (though down to 8 from 11 over the past 48 hours). Continue protonix/octreotide; he has good IV access with 2 peripheral IVs. GI has been consulted; he is NPO for an EGD today. Keep active type and screen. He is already on broad abx, so no additional SBP prophylaxis is needed. 2. Sepsis Source is most likely pulmonary at this point. SBP was ruled out yesterday with diagnostic paracentesis. Blood and urine cultures are negative, no diarrhea. I am covering him for HCAP at this time. Responded well to albumin for volume expansion. 2. Decomensated Liver Failure with ascites and pleural effusions. Ultimately he still needs diuresis and/or a therapeutic paracentesis, but we have been limited by #1 and #2. When he becomes hemodynamically stable, I will resume lasix/spironolactone. It now appears that an infectious source +/- a GI bleed are responsible for this acute on subacute presentation. This is a new diagnosis for him and his family. I have discussed the diagnosis of cirrhosis with them at length. He quit drinking this Spring because he was becoming so weak and deconditioned. Prior to that he drank about 6 drinks per day since he was in his teens. He has no history of IV drug abuse and no exposure to hepatitis that he knows of. No one in his family has history of liver disease. Hepatitis panel is negative. Given his age and lack of other stigmata, will not pursue work up of infiltrative or autoimmune etiologies. Will also check TTE to rule out cardiac cirrhosis/ascites. He is not on any medications that are hepatotoxic. 3. Coagulopathy. Likely related to #1. No bleeding. 3. Pleural Effusion most likely related to liver failure and hypoalbuminemia. No O2 requirement. 4. Severe protein malnourishment Again, likely related to liver failure. Appreciate nutrition input. Trialed albumin for last 48 hours; I am concerned about his respiratory status so I am holding albumin for now. . 5. Deconditioning Appreciate PT input. 6. Disposition. He and his family understand the poor prognosis of liver failure in the setting of severe deconditioning. We discussed hospice, and they want to take him home with hospice when these acute issues are improved. DNR/DNI.
[2017-07-16] MEDS: Vancomycin(*) 1,000 MG in NS 0.9% 250 ML* 250 ML IVPB SCH (12:26)
[2017-07-16] MEDS ORDERED: Meperidine SYRINGE* 50 MG/ML ONE (13:49)
[2017-07-16] MEDS ORDERED: Midazolam* 1 MG/ML 10 ML VIAL (10 MG) ONE (13:49)
--- NOTE | 2017-07-16 14:32 | PN ---
Hospitalist Progress Note Discussed case with Dr. Martinez. EGD done in ICU; no varices found. In setting of stable hgb and negative fecal occult blood test, I have low suspicion for a GI bleed. Will continue daily IV protonix but discontinue octreotide. Given his hemodynamic stability from a sepsis perspective in combination with no bleeding, I will resume diuresis. I am concerned, however, that his anasarca is driven by hypoalbuminemia and we may be limited in diuresing him. Still may need therapeutic paracentesis.
[2017-07-16] MEDS: Enoxaparin(*) 40 MG/0.4 ML SYR SUBCUT SCH (15:48)
[2017-07-16] MEDS ORDERED: Furosemide IV* 10 MG/ML VIAL (40 MG) IV ONE (16:52)
[2017-07-16] MEDS: Pantoprazole IV* 40 MG IV SCH (20:27)
[2017-07-16] MEDS: Furosemide IV* 10 MG/ML VIAL (40 MG) IV SCH (20:27)
--- NOTE | 2017-07-16 23:16 | PRO ---
DATE: 07/16/17 - ROOM #413 REFERRING PHYSICIAN: Paulino Spear MD* PROCEDURE: Upper gastrointestinal endoscopy through the distal duodenum. INDICATION: This 77-year-old man admitted with abdominal distention from ascites, but also having a history of weight loss over many months to a year, during the hospital stay, has had signs of blood loss. On admission, 07/12/17, his hemoglobin was 11.1. He was being diuresed and 2 days later, the hemoglobin was 11.8. Following day at 11 a.m., on 07/15/17, his hemoglobin was 8.0. There has been no obvious external blood loss. He had not vomited or had diarrhea. He had had a diagnostic paracentesis that was uncomplicated and there was no postprocedural abdominal pain. Hemoccult was sent that evening around 6 p.m. and was negative. Around that time of dinner, there was a report from the nurse's aide that there was blood mixed in the stool. This occurred only once. The nursing notes do not refer to repetitive bloody stools. The patient's , who has been with him since 7 a.m. this morning, had not observed any stool. He went to the washroom once around 9 a.m. and passed a small brown stool without any obvious blood, and now 6 hours later, there have been no further bowel movements. He is a frail man, poor historian or distracted historian, in no overt distress at this time. He was interviewed with his and [id number] in the room. His BUN had not risen during this hospital stay, just raising from 8 or 9 to 11 or 12 (being diuresed), and again there has been no vomiting. His , who is proxy, consented to brief abrogation of the DNR order. ENDOSCOPIST: Dr. Martinez. MEDICATIONS: Midazolam 3, meperidine 25 with good comfort. FINDINGS: The likely finds were reviewed including the possible treatment of varices if found. EGD: Larynx - Symmetric, limited views with no blood. Esophagus - Easily entered and the mucosa is normal. The upper, mid, and lower esophagus with some spasm in the lower esophagus, though no scars or peptic changes. There were no varices at all. Some spasm occurred transiently, but then later briefly, a small hiatal hernia was seen, sliding type, intermittent. Stomach - Generally normal mucosa with some minimal papillated appearance consistent with mild portal hypertensive gastropathy. Rugal folds were otherwise normal. There were no erosions and no bleeding. The antrum appeared normal. Duodenum - The pylorus, bulb, and second through fourth portions appeared normal. There was no duodenopathy. IMPRESSION: Minimal gastric erythema consist with portal hypertensive gastropathy - mild. No source of bleeding seen. [id number]/[facility] #: [id number] [facility]
[2017-07-17] MEDS: Vancomycin(*) 1,000 MG in NS 0.9% 250 ML* 250 ML IVPB SCH ×2 (01:11→13:28)
[2017-07-17 06:10] LABS: Hematocrit 33 % (42-52); Hemoglobin 10.9 g/dl (14.0-18.0); Mean Corpuscular HGB Conc 33 g/dl (31-36); Mean Corpuscular Hemoglobin 37 pg (27-31); Mean Platelet Volume 7 um3 (7.4-10.4); Red Blood Count 2.93 10^6/ul (4.0-5.4); Red Cell Distribution Width 15 % (10.5-15)
[2017-07-17 06:11] LABS: Comments Flag Yes; Mean Corpuscular Volume 111 fL (80-94)
[2017-07-17 07:03] LABS: Albumin 2.6 g/dL (3.2-5.2); BUN/Creatinine Ratio 14.7 (8-20); Calcium 8.3 mg/dL (8.6-10.3); EGFR African American 129.5 (>60); EGFR Non-African American 100.7 (>60); Magnesium 1.7 mg/dL (1.9-2.7); Total Bilirubin 2.1 mg/dL (0.2-1.0); Total Protein 4.6 g/dL (6.4-8.9)
[2017-07-17] MEDS: Potassium Chlor TAB* 20 MEQ TAB.ER PO SCH ×2 (09:34→19:41)
[2017-07-17] MEDS: Furosemide IV* 10 MG/ML VIAL (40 MG) IV SCH ×2 (09:34→19:41)
[2017-07-17] MEDS: Sertraline* 50 MG TAB PO SCH (09:35)
[2017-07-17] MEDS: PANCRELIPASE 3000 UNIT PO SCH ×3 (09:48→16:51)
--- NOTE | 2017-07-17 12:53 | PN ---
Subjective Date of Service: 07/17/17 Interval History: Mr. Ledbetter feels a little better today. His mother in law and brother in law are at the bedside. He is awake watching tv and socializing. He complains of abdominal distension and bloating, but denies nausea, constipation, diarrhea, hematochezia, or melena. No confusion. He gets short of breath when moving around, but none at rest. He worked with physical therapy this morning, which he says was very challenging. Family History: Unchanged from Admission Social History: Unchanged from Admission Past Medical History: Unchanged from Admission Objective Active Medications: Enoxaparin Sodium (Lovenox(*)) 40 mg SUBCUT Q24H [facility] Last Admin: 07/16/17 15:48 Dose: 40 mg Furosemide (Lasix Iv*) 40 mg IV BID [facility] Last Admin: 07/17/17 09:34 Dose: 40 mg Vancomycin HCl 1,000 mg/ (Sodium Chloride) 250 mls @ 166.667 mls/hr IVPB 0100, 1300 [facility] Last Admin: 07/17/17 01:11 Dose: 166.667 mls/hr Piperacillin Sod/Tazobactam (Sod 3.375 gm/ Sodium Chloride) 100 mls @ 25 mls/ hr IVPB 0300,1100,1900 [facility] Last Admin: 07/17/17 11:25 Dose: 25 mls/hr Morphine Sulfate (Morphine Inj (Syringe)*) 1 mg IV Q4H PRN PRN Reason: PAIN - MODERATE TO SEVERE Pancrelipase (Creon (Nf)) 6,000 units PO TID WITH MEALS [facility] Last Admin: 07/17/17 09:48 Dose: Not Given Pantoprazole Sodium (Protonix Iv*) 40 mg IV Q24H [facility] Last Admin: 07/16/17 20:27 Dose: 40 mg Pharmacy Consult (Vancomycin Per Pharmacy*) 1 note FOLLOW UP . PRN PRN Reason: PER PROTOCOL Pharmacy Profile Note (Vancomycin Trough Check) 1 note FOLLOW UP 0900 ONE Stop: 07/18/17 13:01 Potassium Chloride (Klor Con Er Tab*) 20 meq PO BID [facility] Last Admin: 07/17/17 09:34 Dose: 20 meq Sertraline HCl (Zoloft*) 50 mg PO DAILY [facility] Last Admin: 07/17/17 09:35 Dose: 50 mg Vital Signs 07/16/17 07/16/17 07/16/17 13:05 13:15 13:30 Temperature Pulse Rate 67 68 70 Respiratory 12 10 Rate Blood Pressure 131/60 129/64 (mmHg) O2 Sat by Pulse 93 94 94 Oximetry 07/16/17 07/16/17 07/16/17 13:45 13:58 14:00 Temperature 99.3 F Pulse Rate 68 68 Respiratory 14 19 15 Rate Blood Pressure 137/69 131/68 (mmHg) O2 Sat by Pulse 97 99 Oximetry 07/16/17 07/16/17 07/16/17 14:06 14:10 14:15 Temperature Pulse Rate 67 76 72 Respiratory 12 22 19 Rate Blood Pressure 120/65 139/75 131/73 (mmHg) O2 Sat by Pulse 99 100 99 Oximetry 07/16/17 07/16/17 07/16/17 14:20 14:25 14:30 Temperature Pulse Rate 75 75 Respiratory 16 30 32 Rate Blood Pressure 150/71 133/68 114/65 (mmHg) O2 Sat by Pulse 97 98 Oximetry 07/16/17 07/16/17 07/16/17 14:35 14:44 14:45 Temperature Pulse Rate 73 69 Respiratory 30 27 26 Rate Blood Pressure 120/61 110/60 (mmHg) O2 Sat by Pulse 96 96 Oximetry 07/16/17 07/16/17 07/16/17 15:00 15:15 15:30 Temperature Pulse Rate 63 61 57 Respiratory 26 26 18 Rate Blood Pressure 103/57 95/57 103/56 (mmHg) O2 Sat by Pulse 97 96 96 Oximetry 07/16/17 07/16/17 07/16/17 15:45 15:50 16:00 Temperature Pulse Rate 59 59 Respiratory 27 26 21 Rate Blood Pressure 102/52 112/60 (mmHg) O2 Sat by Pulse 97 97 98 Oximetry 07/16/17 07/16/17 07/16/17 16:15 16:30 16:45 Temperature Pulse Rate 58 58 60 Respiratory 28 20 27 Rate Blood Pressure 115/57 107/57 124/67 (mmHg) O2 Sat by Pulse 97 98 97 Oximetry 07/16/17 07/16/17 07/16/17 17:00 17:15 17:30 Temperature Pulse Rate 61 62 63 Respiratory 23 18 17 Rate Blood Pressure 134/70 125/62 127/60 (mmHg) O2 Sat by Pulse 98 98 91 Oximetry 07/16/17 07/16/17 18:00 20:00 Temperature 97.9 F 97.6 F Pulse Rate 72 73 Respiratory 18 12 Rate Blood Pressure 117/53 122/57 (mmHg) O2 Sat by Pulse 95 91 Oximetry Oxygen Devices in Use Now: None Appearance: alert, thin, no distress, temporal wasting Eyes: No Scleral Icterus, PERRLA Ears/Nose/Mouth/Throat: NL Teeth, Lips, Gums, Clear Oropharnyx Neck: NL Appearance and Movements; NL JVP, Trachea Midline, - - no jvp Respiratory: Symmetrical Chest Expansion and Respiratory Effort, - - decreased breath sounds both bases, R>L Cardiovascular: NL Sounds; No Murmurs; No JVD, RRR Abdominal: - - distended, nontender, +fluid wave, liver palpable at costal margin Lymphatic: No Cervical Adenopathy Extremities: - - pitting edema to thighs Neurological: Alert and Oriented x 3 Result Diagrams: 07/17/17 05:57 07/17/17 05:57 Additional Lab and Data: Lab Results 07/12/17 07/12/17 07/12/17 Range/Units 09:50 09:50 09:50 WBC 6.3 (3.5-10.8) 10^3/ul RBC 2.99 L (4.0-5.4) 10^6/ul Hgb 11.1 L (14.0-18.0) g/dl Hct 33 L (42-52) % MCV 109 H (80-94) fL MCH 37 H (27-31) pg MCHC 34 (31-36) g/dl RDW 14 (10.5-15) % Plt Count 208 (150-450) 10^3/ul MPV 7 L (7.4-10.4) um3 Neut % (Auto) 66.0 (38-83) % Lymph % (Auto) 17.4 L (25-47) % Grainger % (Auto) 13.2 H (1-9) % Eos % (Auto) 3.2 (0-6) % Baso % (Auto) 0.2 (0-2) % Absolute Neuts (auto) 4.1 (1.5-7.7) 10^3/ul Absolute Lymphs (auto) 1.1 (1.0-4.8) 10^3/ul Absolute Monos (auto) 0.8 (0-0.8) 10^3/ul Absolute Eos (auto) 0.2 (0-0.6) 10^3/ul Absolute Basos (auto) 0 (0-0.2) 10^3/ul Absolute Nucleated RBC 0.01 10^3/ul Nucleated RBC % 0.1 Sodium 136 (133-145) mmol/L Potassium 3.4 L (3.5-5.0) mmol/L Chloride 105 (101-111) mmol/L Carbon Dioxide 27 (22-32) mmol/L Anion Gap 4 (2-11) mmol/L BUN 9 (6-24) mg/dL Creatinine 0.52 L (0.67-1.17) mg/dL Est GFR ( Amer) 197.7 (>60) Est GFR (Non-Af Amer) 153.7 (>60) BUN/Creatinine Ratio 17.3 (8-20) Glucose 141 H (70-100) mg/dL Lactic Acid (0.5-2.0) mmol/L Calcium 8.2 L (8.6-10.3) mg/dL Total Bilirubin 1.50 H (0.2-1.0) mg/dL AST 58 H (13-39) U/L ALT 26 (7-52) U/L Alkaline Phosphatase 159 H (34-104) U/L Troponin I 0.01 (<0.04) ng/mL B-Natriuretic Peptide 102 H ( - 100) pg/mL Total Protein 5.0 L (6.4-8.9) g/dL Albumin 1.7 L (3.2-5.2) g/dL Globulin 3.3 (2-4) g/dL Albumin/Globulin Ratio 0.5 L (1-3) 07/12/17 Range/Units 09:50 WBC (3.5-10.8) 10^3/ul RBC (4.0-5.4) 10^6/ul Hgb (14.0-18.0) g/dl Hct (42-52) % MCV (80-94) fL MCH (27-31) pg MCHC (31-36) g/dl RDW (10.5-15) % Plt Count (150-450) 10^3/ul MPV (7.4-10.4) um3 Neut % (Auto) (38-83) % Lymph % (Auto) (25-47) % Grainger % (Auto) (1-9) % Eos % (Auto) (0-6) % Baso % (Auto) (0-2) % Absolute Neuts (auto) (1.5-7.7) 10^3/ul Absolute Lymphs (auto) (1.0-4.8) 10^3/ul Absolute Monos (auto) (0-0.8) 10^3/ul Absolute Eos (auto) (0-0.6) 10^3/ul Absolute Basos (auto) (0-0.2) 10^3/ul Absolute Nucleated RBC 10^3/ul Nucleated RBC % Sodium (133-145) mmol/L Potassium (3.5-5.0) mmol/L Chloride (101-111) mmol/L Carbon Dioxide (22-32) mmol/L Anion Gap (2-11) mmol/L BUN (6-24) mg/dL Creatinine (0.67-1.17) mg/dL Est GFR ( Amer) (>60) Est GFR (Non-Af Amer) (>60) BUN/Creatinine Ratio (8-20) Glucose (70-100) mg/dL Lactic Acid 1.8 (0.5-2.0) mmol/L Calcium (8.6-10.3) mg/dL Total Bilirubin (0.2-1.0) mg/dL AST (13-39) U/L ALT (7-52) U/L Alkaline Phosphatase (34-104) U/L Troponin I (<0.04) ng/mL B-Natriuretic Peptide ( - 100) pg/mL Total Protein (6.4-8.9) g/dL Albumin (3.2-5.2) g/dL Globulin (2-4) g/dL Albumin/Globulin Ratio (1-3) Microbiology and Other Data: Microbiology 07/14/17 13:00 Gram Stain - Final Body Fluid - Peritoneal Assess/Plan/Problems-Billing Assessment: 1. Decomensated Cirrhosis with ascites and pleural effusions. Ultimately he still needs diuresis and/or a therapeutic paracentesis, but we were limited over the past few days by hypotension/sepsis/concern for GI bleed. Now that he is hemodynamically stable, I am resuming lasix today, and will plan to resume spironolactone tomorrow. If this is well-tolerated, will plan for a therapeutic paracentesis today. It appears that an infectious source was responsible for this acute on subacute presentation. This is a new diagnosis for him and his family. I have discussed the diagnosis of cirrhosis with them at length. He quit drinking this Spring because he was becoming so weak and deconditioned. Prior to that he drank about 6 drinks per day since he was in his teens. He has no history of IV drug abuse and no exposure to hepatitis that he knows of. No one in his family has history of liver disease. Hepatitis panel is negative. Given his age and lack of other stigmata, will not pursue work up of infiltrative or autoimmune etiologies. Will also check TTE to rule out cardiac cirrhosis/ascites. He is not on any medications that are hepatotoxic. MELD is 13; child ignacio class B. He is not a transplant candidate, however these scores suggest a >6 month prognosis outside of his other deconditioning and malnourishment. 2. Macrocytic Anemia. A large bloody bowel movement was reported on the evening of 07/15 that coincided with a 3 gram drop in Hgb. He remained hemodynamically stable and required no blood transfusions. An EGD yesterday showed no varices. An FOBT was negative. Hgb remains stable. Anemia is likely related to marrow invovlement of chronic etoh use. 3. Sepsis Source is most likely pulmonary at this point. SBP was ruled out with diagnostic paracentesis. Blood and urine cultures are negative, no diarrhea. I am covering him for HCAP at this time. 4. Coagulopathy. Likely related to #1. No bleeding. 4. 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 No O2 requirement. 5. Severe protein malnourishment Again, likely related to liver failure. Appreciate nutrition input. 5. Deconditioning Appreciate PT input. 6. Disposition. He and his family understand the poor prognosis of liver failure in the setting of severe deconditioning. We discussed hospice, and they want to take him home with hospice when these acute issues are improved, however I'm unsure if he will qualify for hospice. I am consulting palliative care to weigh in on his hospice qualifications. DNR/DNI.
--- NOTE | 2017-07-17 14:13 | ECHO ---
Patient: SHEY HENLEY [facility] Rec#: [id number] : 1940 Date: 07/17/2017 Age: 77y Height: 167.64 cm / 66.0 in Weight: 69.85 kg / 153.9 lbs Sex: M BSA: 1.79 Room#: 413 Admit Date#: 07/12/2017 Type: Inpatient Referring: Yuki Russell MD Reading: Krunal Lambert MD Test Engineering Manager: Zuly Gold,RDCS,RDMS CC: Paulino Spear MD Transthoracic Echocardiogram Indication: CHF, Cardiac cirrhosis BP: 86/42 HR: 77 Rhythm: NSR Findings History: Hypotension, fever, HTN, HLD, ascites, ETOH, DM. Technical Comments: The study quality is poor. The study is technically limited due to patient body habitus. Lung tissue interference is noted. Left Ventricle: The left ventricular chamber size is normal. Mild concentric left ventricular hypertrophy is observed. There is normal left ventricular systolic function. The estimated ejection fraction is 55-60%. The assessment of diastolic function is non-diagnostic. Left Atrium: The left atrium is slightly dilated. Right Ventricle: The right ventricular chamber size and systolic function are within normal limits. Right Atrium: The right atrial cavity size is normal. Aortic Valve: The aortic valve leaflets are mildly thickened. Systolic excursion of the aortic valve is normal. There is no evidence of aortic regurgitation. There is no evidence of aortic stenosis. Mitral Valve: The mitral valve structure is not well visualized. The mitral valve leaflets are mildly thickened.Cannot see valve well enough in the parsternal lonng axis view to rule out prolapse. There is mild mitral regurgitation. There is no evidence of mitral stenosis. Tricuspid Valve: The tricuspid valve leaflets are normal. There is trace to mild tricuspid regurgitation. No pulmonary hypertension is noted. Pulmonic Valve: The pulmonic valve structure is not well visualized. Pericardium: There is no significant pericardial effusion. A left pleural effusion is present. Aorta: The aortic root appears normal. There is no dilatation of the aortic arch. Pulmonary Artery: The main pulmonary artery is not well visualized. Venous: The inferior vena cava is not visualized. Conclusions The study quality is poor. The study is technically limited due to patient body habitus. Lung tissue interference is noted. There are limited views for accurate assessment. Mild concentric left ventricular hypertrophy is observed. Probable normal LV systolic function The estimated ejection fraction is 55-60%. There is mild mitral regurgitation, cannot assess by current images for prolapse. There is trace to mild tricuspid regurgitation. A left pleural effusion is present. Compared to report of study from 07/02/2017 the mitral regurgitation is less (was reported as moderate) although suboptimal imaging makes current comment less reliable. The degree of tricuspid regurgitation is less (was reported as mild to moderate). If more definitve assessment is needed consider alternative imaging such as DENA. Measurements Name Value Normal Range RVIDd (AP) 2D 2.2 cm (0.9 - 2.6) RVDdMajor (2D) 3.6 cm (2.2 - 4.4) RAd ISD 4CH 5 cm (3.4 - 4.9) RA (A4C)W 4 cm (2.9 - 4.6) IVSd (2D) 1.2 cm (0.6 - 1) LVPWd (2D) 1.1 cm (0.6 - 1) LVIDd (2D) 4.1 cm (3.6 - 5.4) LVIDs (2D) 2.9 cm - LV FS (2D) 30 % (25 - 45) Aortic Annulus 2 cm (1.4 - 2.6) Ao root diameter (2D) 3 cm (2.1 - 3.5) Ascending Ao 2.7 cm (2.1 - 3.4) LA dimension (AP) 2D 3.3 cm (2.3 - 3.8) LAd ISD 4CH 4.6 cm (2.9 - 5.3) LA ISD 4CH W 4.6 cm (2.5 - 4.5) Name Value Normal Range MV E-wave Vmax 0.5 m/sec - MV deceleration time 188 msec - MV A-wave Vmax 0.6 m/sec - MV E:A ratio 0.8 ratio - LV septal e' Vmax 0.05 m/sec - LV lateral e' Vmax 0.08 m/sec - LV E:e' septal ratio 10 ratio - LV E:e' lateral ratio 6.3 ratio - Name Value Normal Range AV Vmax 0.9 m/sec - AV VTI 16 cm - AV peak gradient 3.2 mmHg - AV mean gradient 1.7 mmHg - LVOT Vmax 0.6 m/sec - LVOT VTI 13.5 cm - LVOT peak gradient 1.4 mmHg - LVOT mean gradient 1 mmHg - ALEXANDR Vmax 0.5 m/sec - Name Value Normal Range TR Vmax 2.2 m/sec - TR peak gradient 19 mmHg - RAP 8 mmHg - RVSP 27 mmHg - Name Value Normal Range PV Vmax 0.8 m/sec - PV peak gradient 2.6 mmHg -
[2017-07-17] MEDS: Enoxaparin(*) 40 MG/0.4 ML SYR SUBCUT SCH (16:51)
[2017-07-17] MEDS ORDERED: TPN Peripheral STANDARD BASE A IV SCH ×12 (17:00)
[2017-07-17] MEDS: Pantoprazole IV* 40 MG IV SCH (19:41)
--- NOTE | 2017-07-17 21:07 | CONS ---
CC: Paulino Spear MD; Yuki Russell DO * PALLIATIVE CARE CONSULTATION: DATE OF CONSULT: 07/17/17 PRIMARY CARE PHYSICIAN: Paulino Spear MD REFERRING PHYSICIAN: Yuki Russell DO HOSPITAL COURSE: This is a 77-year-old male with a past medical history of alcohol use, pancreatic insufficiency, depression, who presented to the emergency room on 07/12/17, referred by his primary care physician for evaluation of ascites and worsening edema. On admission, the patient presented with dyspnea. He was started on diuretics and it was felt to be most likely secondary to his ascites and generalized anasarca and his liver disease. He is also noted to have severe protein calorie malnutrition. The patient did have a paracentesis done on 07/14/17. He had an echocardiogram done as well. That was a poor quality study. He was seen by GI for his new-onset ascites. There was also concern initially for an upper GI bleed. He underwent endoscopy on 02/26, that showed minimal gastric erythema consistent with portal hypertensive gastropathy that was mild. No source of bleeding seen. No varices found. He had a chest, abdomen, and pelvis CT that showed a [id number] amount of ascites, moderate right and small left pleural effusion. On my encounter, the , Sanjeev, and [id number] are present at the bedside and states since the winter they have noticed decline in his appetite. He has decrease in p.o. He only takes small frequent bites. He started feeling unwell in the spring and stopped drinking at the end of March 2017. Prior to that, on an average, he was drinking about 6 to 8 beers per day, but because of not feeling well with the worsening swelling of the abdomen and anorexia, he stopped drinking. He became more weak and deconditioned as well and he was being followed as an outpatient. He was independent of his ADLs and then 2 weeks ago, he began using walker and then about a week ago, he was no longer able to be ambulatory due to his weakness. The patient states his breathing has improved since the paracentesis. He denies any pain or constipation. We discussed his MOLST form , second page was checked, but not signed and he would like to be comfort measures, no feeding tube, and do not rehospitalize. We spoke based on his liver failure, end-stage liver disease that he is eligible for hospice services. The would like to take him home and care for him at home with hospice and the [id number]-[id number] is up from [place], who is also going to help care for him as well and they are probably going to look into hiring private aides as well as help fill in the gaps for care. Otherwise, remaining review of systems is negative. PAST MEDICAL HISTORY: 1. Pancreatic insufficiency. 2. New diagnosis of ascites and anasarca. 3. History of alcohol use. 4. Depression. 5. History of hypertension, no longer on any medications. 6. GERD. 7. Hyperlipidemia. 8. Actinic keratosis. 9. History of basal cell carcinoma. 10. Diabetes, diet controlled. 11. Osteoarthritis. 12. Gout. 13. BPH. 14. Hard of hearing. INPATIENT MEDICATIONS: 1. Lovenox 40 mg subcu daily. 2. Lasix 40 mg IV b.i.d. 3. Morphine 1 mg every 4 hours as needed. 4. Pancrelipase 6000 units p.o. t.i.d. 5. Pantoprazole 40 mg IV q.24 hours. 6. Zosyn 3.375 g t.i.d. 7. Potassium chloride tab 20 mEq p.o. b.i.d. 8. Sertraline 50 mg p.o. daily. 9. Vancomycin 1 g b.i.d. ALLERGIES: No known drug allergies. FAMILY HISTORY: No history of alcohol abuse or liver disease. SOCIAL HISTORY: As mentioned, the patient is living at home with his , Sanjeev, who is his primary healthcare proxy. He was a long-standing heavy drinker up until March of 2017, averaging 6 to 8 beers per day. He was a former cigar smoker, quit about 20 years ago. 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 His MOLST form is a DNR, DNI, and comfort measures only. REVIEW OF SYSTEMS: A 14-point review of systems reviewed, pertinent positives and negatives as mentioned in the HPI, otherwise, negative. PHYSICAL EXAM: Vitals: Temp 97.6, pulse rate 73, respiratory rate 12, oxygen saturation 91% on room air, blood pressure 122/57. General: No acute distress , frail, elderly, cachectic male with his family at the bedside. HEENT: Head normocephalic. The patient with bitemporal muscle wasting. Oropharynx: Mucous membranes are moist. Pupils equal and reactive, anicteric. Neck: Supple. No lymphadenopathy. Cardiac: Regular rate and rhythm. Soft systolic murmur heard throughout. Respiratory: Diminished breath sounds. No wheeze, rhonchi, or rales. Abdomen: Distended, soft. Positive fluid wave. Extremities : +2 upper extremity edema. No clubbing or cyanosis. Neurologic: Alert and oriented x3. No focal neurological deficits. LABORATORY DATA: White count 7, hemoglobin 10.9, hematocrit 33, platelets 184. INR 1.58. Sodium 138, potassium 4, chloride 103, bicarb 26, BUN 11, creatinine 0.75. Total bili is 2, AST 71, ALT of 23. Albumin on admission was 1.7, pre- albumin less than 3. ASSESSMENT AND PLAN: This is a 77-year-old male with a past medical history of heavy alcohol use, who presents to the emergency room with deconditioning, weakness, shortness of breath, found to have end-stage liver disease. He is status post paracentesis. Plan is for him to get another diagnostic and therapeutic paracentesis tomorrow and discussed getting cytology as well to review for underlying malignancy. I did tell the family and the patient that he is eligible for hospice based on primary diagnosis of end-stage liver disease , secondary diagnosis of malnutrition. The family would like to take him home with hospice services and I will have our criminal justice social worker follow up with the family regarding logistics of hospice services in their county. We also discussed discontinuing the TPN as this goes against his wishes based on no feeding tube or artificial nutrition and I discussed that I do not think that it will improve his quality of life and it may carry more risks than benefits at this point. I discussed my recommendation with Dr. Russell. Thank you for this consultation. I will follow along with you. TIME SPENT: Greater than 90 minutes was spent doing the consultation, more than half time was spent in direct patient contact. [id number]/[facility] #: [id number] ANGELINA
[2017-07-18] MEDS: Vancomycin(*) 1,000 MG in NS 0.9% 250 ML* 250 ML IVPB SCH ×2 (00:39→16:19)
[2017-07-18 06:19] LABS: Hematocrit 29 % (42-52); Hemoglobin 10.1 g/dl (14.0-18.0); Mean Corpuscular HGB Conc 35 g/dl (31-36); Mean Corpuscular Hemoglobin 38 pg (27-31); Mean Platelet Volume 7 um3 (7.4-10.4); Red Cell Distribution Width 14 % (10.5-15); White Blood Count 6.4 10^3/ul (3.5-10.8)
[2017-07-18 06:21] LABS: Comments Flag Yes; Mean Corpuscular Volume 107 fL (80-94)
[2017-07-18 06:28] LABS: Albumin 2.4 g/dL (3.2-5.2); BUN/Creatinine Ratio 10.8 (8-20); Calcium 8.2 mg/dL (8.6-10.3); EGFR African American 131.6 (>60); EGFR Non-African American 102.3 (>60); Globulin 2.2 g/dL (2-4); Magnesium 1.6 mg/dL (1.9-2.7); Total Protein 4.6 g/dL (6.4-8.9)
[2017-07-18] MEDS: PANCRELIPASE 3000 UNIT PO SCH ×3 (08:21→17:21)
[2017-07-18] MEDS: Potassium Chlor TAB* 20 MEQ TAB.ER PO SCH ×2 (08:24→20:36)
[2017-07-18] MEDS: Sertraline* 50 MG TAB PO SCH (08:24)
[2017-07-18] MEDS: Furosemide IV* 10 MG/ML VIAL (40 MG) IV SCH ×2 (08:25→20:23)
[2017-07-18] MEDS ORDERED: Potassium Chlor TAB* 20 MEQ TAB.ER PO ONE (10:17)
[2017-07-18 12:13] LABS: Total Protein, BF 0.6 g/dL
--- NOTE | 2017-07-18 12:55 | CONS ---
CC: Dr. Paulino Spear * SURGICAL CONSULTATION DATE OF CONSULTATION: 07/18/2017. The patient was seen in room 413. REASON FOR CONSULT: I was contacted by the Hospitalist Service to evaluate Mr. Ledbetter for a possible paracentesis. HISTORY OF PRESENT ILLNESS: Mr. Ledbetter is a 77-year-old gentleman who is referred by his primary care physician for increased shortness of breath and weakness. The patient is a relatively poor historian. As I see him today, I get most of the notes from the chart and from the nurse who is at bedside. The patient has been admitted for the diagnosis of dyspnea. He was felt to have anasarca and noted to have ascites on CT scan recently. The patient had a new diagnosis on this admission of chronic liver disease. The patient is a long- standing drinker. Nevertheless, the patient describes not feeling well for quite some time, along side with weight loss and decreased appetite. Additionally, the patient's dentures no longer fit and he has made five visits to different dentists to help with this and he has not been able to find a dentist who feels this is necessary. They are loose and the patient is having a difficult time eating solid foods. He rarely drinks his nutrients as well and only on hospitalization has he been able to take in strawberry protein shakes. The patient has no complaints of abdominal pain today or anytime during this hospitalization. He has no shortness of breath at this time. He is not on oxygen either in the hospital at this point or at home. Again, review of the chart suggests a 40 pound weight loss. PAST MEDICAL HISTORY: Pancreatic insufficiency, history of ascites and alcohol use, depression, hypertension, GERD, hypercholesterolemia, basal cell carcinoma , diabetes type 2, but is no longer requiring medication, gout, osteoarthritis, BPH. MEDICATIONS: Medication list is reviewed. REVIEW OF SYSTEMS: No fevers or chills. No shortness of breath as described above. The patient just feels weak. He is unable to walk without difficulty. He has no appetite. He is somewhat concerned about his new diagnosis of liver disease. He does describe being a beer drinker and only recently slowing down from approximately six a day in December to more intermittent use at this time. PHYSICAL EXAM: He is afebrile. Vital signs are stable. I believe he is alert and oriented times three. He is in no apparent distress. HEENT: Normocephalic , atraumatic. Sclerae anicteric. Mucus membranes are moist. Abdomen is soft, minimally distended, nontender. No significant fluid wave. Normoactive bowel sounds. Rectal exam not performed. Extremities: Bilateral lower legs are wrapped with an Jordan. No wounds according to the nurse. Mild edema. DIAGNOSTIC STUDIES/LAB DATA: The patient's labs are reviewed. It showed normal white count. It showed the chemistry panel with a BUN/creatinine of 8/ 0.7 and an albumin of 2.4. The patient has struggled in this low 2 range during this hospitalization with low protein as well. Prealbumin is less than 3. Iron studies were not performed. Hepatitis panel is normal without evidence of hepatitis. INR is mildly elevated. The patient did undergo a diagnostic peritoneal tap which showed a growth of likely a skin sandeep of staph epididymis. CAT scan is reviewed and shows moderate ascites. IMPRESSION: Severe malnutrition in a 77-year-old gentleman who is no longer to eat secondary to overall discomfort, possibly problem with his ability to chew and possibly other issues regarding the pancreas. I do not believe ascites fluid is affecting his eating abilities. The patient does not have any abdominal pain and does not have a large volume ascites to suggest that he would benefit from paracentesis at this time. I do not recommend it and I feel that it is not indicated. The patient may be better off on a low salt diet which had been started by the residential property manager, but changed at this point. Additionally, the patient may benefit from a diuretic and possibly a Nephrology consultation. There are certainly other early steps we can take to help Mr. Ledbetter with his hypoalbuminemia and resultant ascites. I do not believe this is marked liver disease leading to this and this is certainly not a large volume of ascites that would benefit paracentesis. I will discuss this with the Hospitalist Service. [id number]/[facility] #: [id number] ANGELINA
[2017-07-18] MEDS ORDERED: Vancomycin Trough Check NOTE FOLLOW UP ONE (13:00)
[2017-07-18] MEDS: Enoxaparin(*) 40 MG/0.4 ML SYR SUBCUT SCH (14:49)
[2017-07-18] MEDS: Vancomycin(*) 750 MG in NS 0.9% 250 ML* 250 ML IVPB SCH (16:27)
[2017-07-18] MEDS ORDERED: Magnesium Oxide TAB* 400 MG PO ONE (16:54)
--- NOTE | 2017-07-18 17:48 | PN ---
Subjective Date of Service: 07/18/17 Interval History: Feels good today. No overnight events. Complains of poor appetite and fatigue. No abdominal pain, melena, hematochezia, confusion, nausea, vomiting. Family History: Unchanged from Admission Social History: Unchanged from Admission Past Medical History: Unchanged from Admission Objective Active Medications: Enoxaparin Sodium (Lovenox(*)) 40 mg SUBCUT Q24H [facility] Last Admin: 07/18/17 14:49 Dose: 40 mg Furosemide (Lasix Iv*) 40 mg IV BID [facility] Piperacillin Sod/Tazobactam (Sod 3.375 gm/ Sodium Chloride) 100 mls @ 25 mls/ hr IVPB 0300,1100,1900 [facility] Last Admin: 07/18/17 11:14 Dose: 25 mls/hr Vancomycin HCl 750 mg/ Sodium (Chloride) 250 mls @ 166.667 mls/hr IVPB Q12H [facility] Last Admin: 07/18/17 16:27 Dose: 166.667 mls/hr Morphine Sulfate (Morphine Inj (Syringe)*) 1 mg IV Q4H PRN PRN Reason: PAIN - MODERATE TO SEVERE Pancrelipase (Creon (Nf)) 6,000 units PO TID WITH MEALS [facility] Last Admin: 07/18/17 17:21 Dose: 6,000 units Pantoprazole Sodium (Protonix Iv*) 40 mg IV Q24H [facility] Last Admin: 07/17/17 19:41 Dose: 40 mg Pharmacy Consult (Vancomycin Per Pharmacy*) 1 note FOLLOW UP . PRN PRN Reason: PER PROTOCOL Pharmacy Profile Note (Vancomycin Trough Check) 1 note FOLLOW UP ONCE ONE Stop: 07/20/17 14:31 Potassium Chloride (Klor Con Er Tab*) 20 meq PO BID [facility] Last Admin: 07/18/17 08:24 Dose: 20 meq Sertraline HCl (Zoloft*) 50 mg PO DAILY [facility] Last Admin: 07/18/17 08:24 Dose: 50 mg Vital Signs 07/17/17 07/17/17 07/17/17 19:58 20:42 23:39 Temperature 98.1 F 98.3 F Pulse Rate 83 77 Respiratory 14 16 24 Rate Blood Pressure 130/58 122/45 (mmHg) O2 Sat by Pulse 94 92 Oximetry 09/06/17 09/06/17 09/06/17 03:17 08:00 08:04 Temperature 98.1 F 97.8 F Pulse Rate 71 70 Respiratory 16 20 20 Rate Blood Pressure 117/59 125/59 (mmHg) O2 Sat by Pulse 94 91 91 Oximetry 07/18/17 07/18/17 11:20 13:50 Temperature 98.0 F 98.3 F Pulse Rate 70 72 Respiratory 22 22 Rate Blood Pressure 97/47 96/41 (mmHg) O2 Sat by Pulse 93 96 Oximetry Oxygen Devices in Use Now: None Appearance: alert, thin, no distress Eyes: No Scleral Icterus, PERRLA, - - temporal wasting Ears/Nose/Mouth/Throat: NL Teeth, Lips, Gums, Mucous Membranes Moist Neck: NL Appearance and Movements; NL JVP, Trachea Midline Respiratory: Symmetrical Chest Expansion and Respiratory Effort, Clear to Auscultation, - - decreased breath sounds b/l bases Cardiovascular: NL Sounds; No Murmurs; No JVD, RRR Abdominal: - - distended, not tense, fluid wave, liver palpable and costal margin, nontender Lymphatic: No Cervical Adenopathy Extremities: - - pitting edema to the thighs Skin: No Rash or Ulcers Neurological: Alert and Oriented x 3, - - no asterixis Result Diagrams: 07/18/17 05:54 07/18/17 05:55 Additional Lab and Data: Lab Results 07/12/17 07/12/17 07/12/17 Range/Units 09:50 09:50 09:50 WBC 6.3 (3.5-10.8) 10^3/ul RBC 2.99 L (4.0-5.4) 10^6/ul Hgb 11.1 L (14.0-18.0) g/dl Hct 33 L (42-52) % MCV 109 H (80-94) fL MCH 37 H (27-31) pg MCHC 34 (31-36) g/dl RDW 14 (10.5-15) % Plt Count 208 (150-450) 10^3/ul MPV 7 L (7.4-10.4) um3 Neut % (Auto) 66.0 (38-83) % Lymph % (Auto) 17.4 L (25-47) % [place] % (Auto) 13.2 H (1-9) % Eos % (Auto) 3.2 (0-6) % Baso % (Auto) 0.2 (0-2) % Absolute Neuts (auto) 4.1 (1.5-7.7) 10^3/ul Absolute Lymphs (auto) 1.1 (1.0-4.8) 10^3/ul Absolute Monos (auto) 0.8 (0-0.8) 10^3/ul Absolute Eos (auto) 0.2 (0-0.6) 10^3/ul Absolute Basos (auto) 0 (0-0.2) 10^3/ul Absolute Nucleated RBC 0.01 10^3/ul Nucleated RBC % 0.1 Sodium 136 (133-145) mmol/L Potassium 3.4 L (3.5-5.0) mmol/L Chloride 105 (101-111) mmol/L Carbon Dioxide 27 (22-32) mmol/L Anion Gap 4 (2-11) mmol/L BUN 9 (6-24) mg/dL Creatinine 0.52 L (0.67-1.17) mg/dL Est GFR ( Amer) 197.7 (>60) Est GFR (Non-Af Amer) 153.7 (>60) BUN/Creatinine Ratio 17.3 (8-20) Glucose 141 H (70-100) mg/dL Lactic Acid (0.5-2.0) mmol/L Calcium 8.2 L (8.6-10.3) mg/dL Total Bilirubin 1.50 H (0.2-1.0) mg/dL AST 58 H (13-39) U/L ALT 26 (7-52) U/L Alkaline Phosphatase 159 H (34-104) U/L Troponin I 0.01 (<0.04) ng/mL B-Natriuretic Peptide 102 H ( - 100) pg/mL Total Protein 5.0 L (6.4-8.9) g/dL Albumin 1.7 L (3.2-5.2) g/dL Globulin 3.3 (2-4) g/dL Albumin/Globulin Ratio 0.5 L (1-3) 07/12/17 Range/Units 09:50 WBC (3.5-10.8) 10^3/ul RBC (4.0-5.4) 10^6/ul Hgb (14.0-18.0) g/dl Hct (42-52) % MCV (80-94) fL MCH (27-31) pg MCHC (31-36) g/dl RDW (10.5-15) % Plt Count (150-450) 10^3/ul MPV (7.4-10.4) um3 Neut % (Auto) (38-83) % Lymph % (Auto) (25-47) % [place] % (Auto) (1-9) % Eos % (Auto) (0-6) % Baso % (Auto) (0-2) % Absolute Neuts (auto) (1.5-7.7) 10^3/ul Absolute Lymphs (auto) (1.0-4.8) 10^3/ul Absolute Monos (auto) (0-0.8) 10^3/ul Absolute Eos (auto) (0-0.6) 10^3/ul Absolute Basos (auto) (0-0.2) 10^3/ul Absolute Nucleated RBC 10^3/ul Nucleated RBC % Sodium (133-145) mmol/L Potassium (3.5-5.0) mmol/L Chloride (101-111) mmol/L Carbon Dioxide (22-32) mmol/L Anion Gap (2-11) mmol/L BUN (6-24) mg/dL Creatinine (0.67-1.17) mg/dL Est GFR ( Amer) (>60) Est GFR (Non-Af Amer) (>60) BUN/Creatinine Ratio (8-20) Glucose (70-100) mg/dL Lactic Acid 1.8 (0.5-2.0) mmol/L Calcium (8.6-10.3) mg/dL Total Bilirubin (0.2-1.0) mg/dL AST (13-39) U/L ALT (7-52) U/L Alkaline Phosphatase (34-104) U/L Troponin I (<0.04) ng/mL B-Natriuretic Peptide ( - 100) pg/mL Total Protein (6.4-8.9) g/dL Albumin (3.2-5.2) g/dL Globulin (2-4) g/dL Albumin/Globulin Ratio (1-3) Microbiology and Other Data: Microbiology 07/14/17 13:00 Gram Stain - Final Body Fluid - Peritoneal Assess/Plan/Problems-Billing Assessment: 1. Decomensated Cirrhosis with ascites and pleural effusions. Continuing diuresis today; he has responded well (we had been limited over the past few days by hypotension/sepsis/concern for GI bleed). Resume spironolactone. It is possible that the ascites is largely driven by hypoalbuminemia, so it may re-accumulate, however we will continue diuresis as tolerated. It appears that an infectious source was responsible for this acute on subacute presentation. This is a new diagnosis for him and his family. I have discussed the diagnosis of cirrhosis with them at length. He quit drinking this Spring because he was becoming so weak and deconditioned. Prior to that he drank about 6 drinks per day since he was in his teens. He has no history of IV drug abuse and no exposure to hepatitis that he knows of. No one in his family has history of liver disease. Hepatitis panel is negative. Given his age and lack of other stigmata, will not pursue work up of infiltrative or autoimmune etiologies. Will also check TTE to rule out cardiac cirrhosis/ascites. He is not on any medications that are hepatotoxic. MELD is 13; child ignacio class B. He is not a transplant candidate, however these scores suggest a >6 month prognosis outside of his other deconditioning and malnourishment. 2. Macrocytic Anemia. A large bloody bowel movement was reported on the evening of 07/15 that coincided with a 3 gram drop in Hgb. He remained hemodynamically stable and required no blood transfusions. An EGD showed no varices. An FOBT was negative. Hgb remains stable. Anemia is likely related to marrow invovlement of chronic etoh use. 3. Sepsis Resolved. Source is most likely pulmonary at this point. SBP was ruled out with diagnostic paracentesis. Blood and urine cultures are negative, no diarrhea. I am covering him for HCAP at this time. Upon discharge, can be switched to levaquin. 4. Coagulopathy. Likely related to #1. No bleeding. 4. 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 No O2 requirement. 5. Severe protein malnourishment Again, likely related to liver failure. Appreciate nutrition input. 5. Deconditioning Appreciate PT input. 6. Disposition. He and his family understand the poor prognosis of liver failure in the setting of severe deconditioning. Plan for home hospice tomorrow. DNR/DNI.
[2017-07-18] MEDS: Pantoprazole IV* 40 MG IV SCH (20:35)
[2017-07-19] MEDS: Vancomycin(*) 750 MG in NS 0.9% 250 ML* 250 ML IVPB SCH (06:33)
[2017-07-19] MEDS: PANCRELIPASE 3000 UNIT PO SCH ×2 (08:56→12:56)
[2017-07-19] MEDS ORDERED: Furosemide IV* 10 MG/ML VIAL (40 MG) IV SCH (09:00)
[2017-07-19] MEDS: Sertraline* 50 MG TAB PO SCH (09:35)
[2017-07-19] MEDS: Furosemide IV* 10 MG/ML VIAL (40 MG) IV SCH (09:35)
[2017-07-19] MEDS: Potassium Chlor TAB* 20 MEQ TAB.ER PO SCH (09:35)
--- NOTE | 2017-07-19 09:46 | RAD ---
INDICATION: Chest pain and pleural effusion. COMPARISON: Comparison is made with a prior chest x-ray study from July 14, 2017. TECHNIQUE: AP and lateral views of the chest were obtained. FINDINGS: The heart is within normal limits in size. Mediastinal contours appear normal. There are small a moderate size bilateral pleural effusions and bibasilar infiltrates right greater than left which appear unchanged. IMPRESSION: SMALL TO MODERATE-SIZED BILATERAL PLEURAL EFFUSIONS AND BIBASILAR INFILTRATES.
[2017-07-19] MEDS ORDERED: Levofloxacin TAB* 750 MG PO ONE (10:53)
--- NOTE | 2017-07-19 12:53 | DS ---
CC: Dr. Spear; [facility] * DATE OF ADMISSION: 07/12/2017. DATE OF DISCHARGE: 07/19/2017. PRIMARY CARE PROVIDER: Dr. Spear. CONSULTING PALLIATIVE PROVIDER: Dr. Escamilla. CONSULTING SALES ADMINISTRATION SPECIALIST: Dr. Blakely. DISCHARGING PROVIDER: CLAUDIA Leija. SUPERVISING PHYSICIAN: Dr. Prema Barraza * (dictated by CLAUDIA Leija). PRIMARY DISCHARGE DIAGNOSES: 1. Decompensated cirrhosis with ascites and associated bilateral pleural effusions with anasarca. 2. Sepsis secondary to pneumonia. 3. 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 4. Severe protein malnourishment likely secondary to liver failure. 5. Deconditioning. SECONDARY DISCHARGE DIAGNOSES: 1. Macrocytic anemia likely secondary to liver failure without evidence of GI bleed. 2. Coagulopathy secondary to liver cirrhosis with an INR of 1.4 at the time of discharge and normal platelets. DISCHARGE MEDICATIONS: 1. Lasix 40 mg p.o. twice daily. 2. Levaquin 750 mg p.o. daily times 6 days. 3. Pancrelipase 3000 to 6000 units 3 times daily with meals. 4. Ranitidine 150 mg p.o. twice daily. 5. Zoloft 50 mg p.o. daily. 6. Spironolactone 50 mg p.o. daily. HOSPITAL IMAGIN. Chest x-ray, 07/12/2017, shows a moderate right pleural effusion with right basilar atelectasis versus consolidation. 2. Ultrasound of the abdomen, 07/12/2017, shows ascites with aright pleural effusion and acirrhotic liver, as well as mild gallbladder wall thickening. 3. Chest x-ray, 07/14/2017, demonstrates moderate right and small left pleural effusions, unchanged, and small bibasilar infiltrates, unchanged. 4. CT of the chest, abdomen and pelvis, 07/15/2017, shows moderate right and small left pleural effusions, a patchy left upper lobe infiltrate, and moderate to large amount of ascites. No evidence of abscess and noted hepatic steatosis. 5. Chest x-ray, 07/19/2017, demonstrates small to moderate-sized bilateral pleural effusions and bibasilar infiltrates, somewhat improved over prior exam. 6. Transthoracic echocardiogram shows somewhat technically limited study, but an estimated EF of 55 to 60 percent. There is mild mitral regurgitation and a presence of a left pleural effusion. No other significant valvular abnormalities. 7. EKG shows a sinus rhythm without acute ischemic changes. HOSPITAL COURSE: This is a 77-year-old gentleman with a history of alcoholism and previously identified pancreatic insufficiency who presented to the emergency department with complaints of a new onset of ascites, worsening edema and associated dyspnea. The patient's provided a history of severe decline over the last several months, including severe weight loss, poor nutrition, and onset of ascites and diffuse edema. He has undergone outpatient work-up including echocardiogram and GI consultation. Evaluation in the emergency department demonstrated bilateral pleural effusions with evidence of ascites. Initial labs included a white blood cell count of 6300, hemoglobin of 11.1, and a platelet count of 208,000. Initial chemistry showed mild hypokalemia with a potassium of 3.4, normal renal function, a mag of 1.6, total bilirubin of 1.5, mildly elevated transaminases, and an albumin of 1.7 with a slightly elevated TSH. Ultrasound of the abdomen further demonstrated presence of ascites and a cirrhotic appearing liver. The patient was subsequently admitted for decompensated liver cirrhosis with associated ascites, pleural effusions, and anasarca without evidence of hepatorenal syndrome. The patient subsequently developed signs of sepsis during his hospital stay. He developed leukocytosis with a white blood cell count of 12,400 at maximum, a temperature of 101.3 degrees Fahrenheit, and moderate hypotension with SBP's dropping into the mid 80s or so. Panculture's were negative, but repeat chest x - ray demonstrated pulmonary infiltrate that was not present on initial x-ray and the patient was subsequently treated for concern of a hospital acquired pneumonia with improvement in symptoms. The patient underwent paracentesis with the Surgery group. Fluid analysis and subsequent culture were negative for signs of SBP. Transthoracic echocardiogram was completed which shows a technically limited study, but did not show any evidence of heart failure contributing to his global edema. The patient was subsequently diuresed with IV Lasix with improvement in his ascites and lower extremity edema. During his hospital stay, he had a large bloody bowel movement with subsequent drop in hemoglobin. He underwent upper endoscopy with GI which did not show any evidence of acute GI bleed and his hemoglobin remained stable without further evidence of bleeding. Fecal occult blood testing negative following the acute episode. Of note, there were no varices noted on his EGD. The patient was treated with IV Protonix during his hospital stay. Due to the patient's severe deconditioning and obvious liver failure with an acute decompensated status, Palliative Care consultation was requested. The patient was deemed to be appropriate for hospice care which the patient and his family agreed to. DISPOSITION AND FOLLOW-UP PLAN: The patient is being discharged to home where hospice services will plan to sign on this afternoon. He lives at home with his . Will plan to continue to treat with diuretics. He will complete an additional six days of antibiotics for his pneumonia. There are no pending studies at this time. Addition primary care can be completed with hospice services or with Dr. Spear. Again, the patient will be signed on to hospice this afternoon after returning home. CLAUDIA LEIJA [id number]/[facility] #: [id number] ANGELINA
[2017-07-19 13:19] VITALS: BP 100/47
[2017-07-20] MEDS ORDERED: Vancomycin Trough Check NOTE FOLLOW UP ONE (14:30)
== END 2017-07-19 13:00 | disposition hospice, home (50) | DRG 441 ==
LOC: ED 09:18 → MED 11:35 → ICU 07-16 08:37 → MED 07-16 18:15
PROVIDERS: ADMIT Internal Medicine; ATTEND Internal Medicine
PROC: 0W9G3ZX Drainage of Peritoneal Cavity, Percutaneous Approach, Diagnostic (ICD-10-PCS; 2017-07-15)
PROC: 0DJ08ZZ Inspection of Upper Intestinal Tract, Via Natural or Artificial Opening Endoscopic (ICD-10-PCS; principal; 2017-07-16)
DX: K72.00 Acute and subacute hepatic failure without coma (principal); J18.9 Pneumonia, unspecified organism; A41.9 Sepsis, unspecified organism; J94.8 Other specified pleural conditions; J90 Pleural effusion, not elsewhere classified; E46 Unspecified protein-calorie malnutrition; D68.4 Acquired coagulation factor deficiency; K76.6 Portal hypertension; R18.8 Other ascites; K74.60 Unspecified cirrhosis of liver; E11.9 Type 2 diabetes mellitus without complications; R54 Age-related physical debility; I10 Essential (primary) hypertension; D53.9 Nutritional anemia, unspecified; F32.9 Major depressive disorder, single episode, unspecified; K21.9 Gastro-esophageal reflux disease without esophagitis; M10.9 Gout, unspecified; M19.90 Unspecified osteoarthritis, unspecified site; N40.0 Benign prostatic hyperplasia without lower urinary tract symptoms; H91.90 Unspecified hearing loss, unspecified ear; E78.5 Hyperlipidemia, unspecified; E87.6 Hypokalemia; K86.89 Other specified diseases of pancreas; Z66 Do not resuscitate; K31.89 Other diseases of stomach and duodenum; I34.0 Nonrheumatic mitral (valve) insufficiency; Z91.013 Allergy to seafood; Z83.3 Family history of diabetes mellitus; Z85.828 Personal history of other malignant neoplasm of skin; Z82.49 Family history of ischemic heart disease and other diseases of the circulatory system; Z87.891 Personal history of nicotine dependence; Z68.22 Body mass index [BMI] 22.0-22.9, adult
CPT/HCPCS: 36415; 71010; 71020; 71260; 74177; 76705; 80048; 80053; 80074; 80202; 81003; 82042; 82140; 82272; 83036; 83605; 83735; 83880; 84134; 84157; 84439; 84443; 84479; 84484; 85025; 85027; 85060; 85610; 86140; 86850; 86900; 86901; 87040; 87077; 87150; 87186; 87205; 89051; 93005; 93306; 94760; 99156; 99157; A9270-GY; J0610; J0696; J1650; J1940; J2250; J2310; J2354; J2543; J3370; J3475; J3480; P9045; P9047; Q9967